=== PATIENT | female | born 1965 | race African-American/Black ===

== ENCOUNTER 2016-10-16 16:08 | Inpatient (IN) | payer MEDICAID, OTHER ==
[~2016-10-16] VITALS: Ht 175.3 cm; Wt 81.8 kg
[~2016-10-16 16:08] MED LIST: BACI500O9 TOPICAL; CYCL1TAB29 PO; GABA100C4 PO; MULT-120 PO; TRAM50TA PO; TRAZ100T4 PO
[2016-10-16 16:09] VITALS: BP 136/82; PULSE 113; RESP 20; TEMP 97.7; O2SAT 97
[2016-10-16 16:44] VITALS: BP 131/79; PULSE 109; RESP 16; O2SAT 99
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
[2016-10-16] MEDS ORDERED: AMIT50TA3 PO (16:52)
[2016-10-16 17:03] LABS: AUTOMATED NEUTROPHIL # 6.3 TH/MM3 (1.8-7.7); BASOPHIL % 0.1 % (0.0-2.0); EOSINOPHIL # 0.1 TH/MM3 (0-0.4); EOSINOPHIL % 1.2 % (0.0-4.0); HEMATOCRIT 38.3 % (35.0-46.0); HEMO FLAGS DIFF FINAL; LYMPH % 8.5 % (9.0-44.0); LYMPHOCYTE # 0.6 TH/MM3 (1.0-4.8); MEAN CELL VOLUME 80.1 FL (80.0-100.0); MEAN CORPUSCULAR HEMOGLOBIN 26.5 PG (27.0-34.0); MEAN CORPUSCULAR HGB CONC 33.1 % (32.0-36.0); MONO % 6.2 % (0.0-8.0); PLATELET COUNT 284 TH/MM3 (150-450); RED BLOOD COUNT 4.78 MIL/MM3 (4.00-5.30); WHITE BLOOD COUNT 7.5 TH/MM3 (4.0-11.0)
[2016-10-16 17:27] LABS: ALT (GPT) 32 U/L (10-53); ANION GAP 7 MEQ/L (5-15); AST (GOT) 23 U/L (15-37); BICARBONATE 26.3 MEQ/L (21.0-32.0); BLOOD UREA NITROGEN 9 MG/DL (7-18); CHLORIDE 103 MEQ/L (98-107); GLOMERULAR FILTRATION RATE 88 ML/MIN (>89); POTASSIUM 3.3 MEQ/L (3.5-5.1); SODIUM (NA) 136 MEQ/L (136-145)
[2016-10-16 17:29] LABS: ALKALINE PHOSPHATASE 66 U/L (45-117); TOTAL BILIRUBIN ADULT 0.5 MG/DL (0.2-1.0)
[2016-10-16] MEDS ORDERED: ACETAMINOPHEN 325 MG TAB PO ONE (18:00)
[2016-10-16 18:42] LABS: AMPHETAMINE, URINE NEG (NEG); BARBITURATES, URINE NEG (NEG); COCAINE, URINE NEG (NEG)
[2016-10-16 19:37] VITALS: BP 145/59; PULSE 96; RESP 18; O2SAT 95
[2016-10-17 00:58] VITALS: BP 138/56; PULSE 92; RESP 16; O2SAT 98
[2016-10-17] MEDS ORDERED: CYCLOBENZAPRINE HCL 10 MG TAB PO ONE (02:45)
[2016-10-17 07:13] VITALS: BP 133/79; PULSE 76; RESP 16; TEMP 97.8; O2SAT 99
[2016-10-17] MEDS ORDERED: LORazepam 0.5 MG TAB PO PRN (10:45)
[2016-10-17] MEDS ORDERED: LORazepam 2 MG/ML VIAL IM PRN ×2 (10:45)
[2016-10-17] MEDS: NICOTINE 21 MG/24 HR PATCH T-DERMAL SCH (10:45)
[2016-10-17] MEDS ORDERED: ALUMINUM/MAGNESIUM/SIMETH 30 ML CUP PO PRN (10:45)
[2016-10-17] MEDS ORDERED: LORazepam 1 MG TAB PO PRN (10:45)
[2016-10-17] MEDS ORDERED: MAGNESIUM HYDROXIDE SUSP 30 ML CUP PO PRN (10:45)
[2016-10-17 14:17] VITALS: BP 112/81; PULSE 88; RESP 18; TEMP 98.1; O2SAT 96
[2016-10-17] MEDS ORDERED: POTASSIUM CHLORIDE 10 MEQ CONTROLLED RELEASE TAB PO ONE (15:00)
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
[2016-10-17] MEDS ORDERED: ALBUTEROL SULFATE 90 MCG/ACT HFA 8 GM INHALER INH PRN (16:30)
[2016-10-17] MEDS: GABAPENTIN 100 MG CAP PO SCH (18:00)
[2016-10-17] MEDS: IBUPROFEN 400 MG TAB PO PRN (18:45)
[2016-10-17 20:00] VITALS: BP 120/74; PULSE 91; RESP 17; TEMP 98.3; O2SAT 99
[2016-10-17] MEDS: MENTHOL LOZENGE BUCCAL PRN (20:53)
[2016-10-17] MEDS: CYCLOBENZAPRINE HCL 10 MG TAB PO PRN (20:53)
[2016-10-17] MEDS: BENZONATATE 100 MG CAP PO PRN (22:05)
[2016-10-17] MEDS: PHENOL 1.4% SOLN 180 ML BTL MT PRN (22:05)
[2016-10-17] MEDS: ALBUTEROL SULFATE 90 MCG/ACT HFA 18 GM INHALER INH PRN (22:05)
[2016-10-17] MEDS: ACETAMINOPHEN 325 MG TAB PO PRN (22:15)
[2016-10-18 06:20] VITALS: BP 106/55; PULSE 71; RESP 18; TEMP 97.4; O2SAT 98
[2016-10-18] MEDS: BENZONATATE 100 MG CAP PO PRN ×2 (06:26→21:52)
[2016-10-18] MEDS: ALBUTEROL SULFATE 90 MCG/ACT HFA 18 GM INHALER INH PRN ×2 (06:27→21:52)
[2016-10-18] MEDS: PHENOL 1.4% SOLN 180 ML BTL MT PRN ×3 (06:27→21:52)
[2016-10-18 06:54] LABS: ANION GAP 10 MEQ/L (5-15); BLOOD UREA NITROGEN 11 MG/DL (7-18); CHLORIDE 103 MEQ/L (98-107); GLOMERULAR FILTRATION RATE 104 ML/MIN (>89); POTASSIUM 3.5 MEQ/L (3.5-5.1); SODIUM (NA) 139 MEQ/L (136-145)
[2016-10-18 06:55] LABS: HDL CHOLESTEROL 42.1 MG/DL (40.0-60.0); LDL CHOLESTEROL 52 MG/DL (0-99)
[2016-10-18] MEDS: MULTIVITAMINS/MINERALS THERAPEUTIC TAB PO SCH (09:00)
[2016-10-18] MEDS: NICOTINE 21 MG/24 HR PATCH T-DERMAL SCH (09:00)
[2016-10-18] MEDS: GABAPENTIN 100 MG CAP PO SCH ×2 (09:00→12:05)
[2016-10-18] MEDS: IBUPROFEN 400 MG TAB PO PRN (09:06)
[2016-10-18] MEDS: CYCLOBENZAPRINE HCL 10 MG TAB PO PRN (09:06)
[2016-10-18] MEDS: MENTHOL LOZENGE BUCCAL PRN ×2 (09:07→17:00)
--- NOTE | 2016-10-18 10:45 | EKG ---
Date Performed: 10/17/2016 Time Performed: 19:43:14 PTAGE: 51 years EKG: Sinus rhythm Compared to previous tracing, the patient is no longer tachycardic. NORMAL ECG PREVIOUS TRACING : 08/07/2015 00.37 DOCTOR: Jen Sheppard Interpretating Date/Time 10/18/2016 10:37:46
[2016-10-18] MEDS ORDERED: POTASSIUM CHLORIDE 20 MEQ CONTROLLED RELEASE TAB PO ONE (12:45)
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
[2016-10-18 16:15] LABS: HEMOGLOBIN A1a 1.3 %; HEMOGLOBIN A1b 0.9 %; HEMOGLOBIN Ao 85.1 %; HEMOGLOBIN F 0.9 %; HEMOGLOBIN LA1C 1.8 %; HEMOGLOBIN P3 3.7 %
--- NOTE | 2016-10-18 16:36 | HHI.PR ---
Subjective Remarks Follow-up neck pain and sore throat. Patient reports of neck pain relieved with ibuprofen. Also sore throat and cough improved. Discussed with RN Objective Vitals Vital Signs Date Time Temp Pulse Resp B/P Pulse Ox O2 Delivery O2 Flow Rate FiO2 10/18/16 06:20 97.4 71 18 106/55 98 10/17/16 20:00 98.3 91 17 120/74 99 I/O 10/17/16 10/17/16 10/17/16 10/18/16 10/18/16 10/18/16 07:00 15:00 23:00 07:00 15:00 23:00 Intake Total 360 ml 1080 ml Balance 360 ml 1080 ml Intake Oral 360 ml 1080 ml # Voids 2 2 3 Result Diagram: 10/16/16 1650 10/18/16 0606 Objective Remarks GENERAL: This is a well-nourished, well-developed patient, in no apparent distress. SKIN: No rashes, ecchymoses or lesions. Cool and dry. HEAD: Atraumatic. Normocephalic. No temporal or scalp tenderness. EYES: Pupils equal round and reactive. Extraocular motions intact. No scleral icterus. No injection or drainage. ENT: Nose without bleeding, purulent drainage or septal hematoma. Throat without erythema, tonsillar hypertrophy or exudate. Uvula midline. Airway patent. NECK: Trachea midline. No JVD or lymphadenopathy. Supple, nontender, no meningeal signs. CARDIOVASCULAR: Regular rate and rhythm without murmurs, gallops, or rubs. RESPIRATORY: Clear to auscultation. Breath sounds equal bilaterally. No wheezes , rales, or rhonchi. GASTROINTESTINAL: Abdomen soft, non-tender, nondistended. No guarding. MUSCULOSKELETAL: Extremities without clubbing, cyanosis, or edema. No joint tenderness, effusion, or edema noted. No calf tenderness. Negative Homans sign bilaterally. NEUROLOGICAL: Awake and alert. Cranial nerves II through XII intact. Motor and sensory grossly within normal limits. Five out of 5 muscle strength in all muscle groups. Normal speech. Flat affect Procedures Non- A/P Assessment and Plan This is a 51-year-old female who presented to the emergency department because of increasing depression. She attempted suicide 2 weeks ago by ingesting Flexeril and gabapentin. Patient states she developed nausea and vomited the pills. Consultation has been requested to evaluate and manage neck pain Depression. 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 Stable Continue Flexeril and Neurontin. Added Motrin after meal. Avoid narcotics Dry cough from itchy throat. Denies allergy symptoms, fever, chills and shortness of breath. Improved. Symptomatic treatment. Denilson Treviño History of asthma. Not in exacerbation. Albuterol as needed Hypokalemia. Replaced DVT prophylaxis patient ambulatory Discharge Planning Patient medically stable will sign off Rai Garrison MD Oct 18, 2016 16:36
[2016-10-18] MEDS: GABAPENTIN 300 MG CAP PO SCH (16:59)
[2016-10-18 18:04] VITALS: BP 109/63; PULSE 74; RESP 18; TEMP 98; O2SAT 99
[2016-10-18] MEDS: QUEtiapine FUMARATE 25 MG TAB PO SCH (21:52)
[2016-10-19 06:07] VITALS: BP 129/77; PULSE 69; RESP 18; TEMP 97.8; O2SAT 98
[2016-10-19 06:10] VITALS: BP 125/68; PULSE 72; RESP 18; TEMP 97.8; O2SAT 99
[2016-10-19] MEDS: GABAPENTIN 300 MG CAP PO SCH ×3 (09:45→17:07)
[2016-10-19] MEDS: MULTIVITAMINS/MINERALS THERAPEUTIC TAB PO SCH (09:45)
[2016-10-19] MEDS: NICOTINE 21 MG/24 HR PATCH T-DERMAL SCH (09:46)
--- NOTE | 2016-10-19 12:57 | HHI.PYPN ---
Subjective Remarks Patient seen in dayroom with nurse Cassandra, chart reviewed. Patient transferred today from 2700 to service. Patient stating vague noises in her head are subsiding, is also vagueness and ambiguity related to any visual manifestations. She did say she slept well for the first time in a number of days. Is compliant with her medications. For now continue treatment Review of Systems Except as stated in HPI: all other systems reviewed are Neg Objective Alert: Yes [place]: Person, Place, Date, Situation Mood: Calm, Depressed Affect: Restricted Memory Intact: Comment (fair) Hallucinations: Auditory (vague), Visual (vague) Delusions: No Delusion Type: Other (somewhat vigilant) Suicidal: Ideation (denies today) Homicidal: Ideation (denies) Insight/Judgement Poor Vitals/IOs Vital Signs Date Time Temp Pulse Resp B/P Pulse Ox O2 Delivery O2 Flow Rate FiO2 10/19/16 06:10 97.8 72 18 125/68 99 10/17/16 07:13 Room Air Intake and Output 10/18/16 10/18/16 10/19/16 08:00 16:00 00:00 Intake Total 1080 ml 510 ml Balance 1080 ml 510 ml Assessment & Plan Problem List: (1) Adjustment disorder ICD Code: F43.20 Assessment & Plan Estimated LOS: days patient continue somewhat depressed vague psychotic features. Compliant medication Justification for Cont. Inpt. At this time patient will decompensate if place to the lower level of care Discharge Planning To be determined Request HC Surrog/Guard Advoc?: No Problem Qualifiers (1) Adjustment disorder: Qualified Code: F43.20 - Adjustment disorder, unspecified type Miguel Blanchard MD Oct 19, 2016 12:57
[2016-10-19] MEDS: ALBUTEROL SULFATE 90 MCG/ACT HFA 18 GM INHALER INH PRN (17:15)
[2016-10-19 18:15] VITALS: BP 110/68; PULSE 85; RESP 18; TEMP 97.9; O2SAT 98
[2016-10-19] MEDS: QUEtiapine FUMARATE 25 MG TAB PO SCH (20:39)
[2016-10-20 06:29] VITALS: BP 96/68; PULSE 62; RESP 16; TEMP 98.4; O2SAT 99
[2016-10-20] MEDS: NICOTINE 21 MG/24 HR PATCH T-DERMAL SCH (09:00)
[2016-10-20] MEDS: CYCLOBENZAPRINE HCL 10 MG TAB PO PRN (09:07)
[2016-10-20] MEDS: MULTIVITAMINS/MINERALS THERAPEUTIC TAB PO SCH (09:07)
[2016-10-20] MEDS: GABAPENTIN 300 MG CAP PO SCH ×3 (09:07→18:00)
--- NOTE | 2016-10-20 14:13 | HHI.PYPN ---
Subjective Remarks Patient seen in day room of floor staff, chart reviewed. Patient continues somewhat depressed. Acknowledging continued auditory hallucinations but somewhat less also continued vigilance with this lady. Compliant medications. Review of Systems Except as stated in HPI: all other systems reviewed are Neg Objective Alert: Yes [place]: Person, Place, Date, Situation Mood: Calm, Depressed Affect: Restricted Memory Intact: Comment (fair) Hallucinations: Auditory (vague), Visual (vague) Delusions: No Delusion Type: Other (somewhat vigilant) Suicidal: Ideation (denies today) Homicidal: Ideation (denies) Insight/Judgement Poor Vitals/IOs Vital Signs Date Time Temp Pulse Resp B/P Pulse Ox O2 Delivery O2 Flow Rate FiO2 10/20/16 06:29 98.4 62 16 96/68 99 10/17/16 07:13 Room Air Intake and Output 10/19/16 10/19/16 10/20/16 08:00 16:00 00:00 Intake Total 240 ml Balance 240 ml Assessment & Plan Problem List: (1) Adjustment disorder ICD Code: F43.20 Assessment & Plan Estimated LOS: days patient continues depressed with a psychotic features, compliant medications Justification for Cont. Inpt. At this time patient will decompensate if placed in a lower level of care Discharge Planning To be determined Request HC Surrog/Guard Advoc?: No Problem Qualifiers (1) Adjustment disorder: Qualified Code: F43.20 - Adjustment disorder, unspecified type Miguel Blanchard MD Oct 20, 2016 14:13
[2016-10-20 19:22] VITALS: BP 115/70; PULSE 76; RESP 18; TEMP 98.6; O2SAT 95
[2016-10-20] MEDS: QUEtiapine FUMARATE 25 MG TAB PO SCH (21:09)
[2016-10-21 05:30] VITALS: BP 89/55; PULSE 61; RESP 16; TEMP 97.9; O2SAT 97
[2016-10-21] MEDS: NICOTINE 21 MG/24 HR PATCH T-DERMAL SCH (09:00)
[2016-10-21] MEDS: GABAPENTIN 300 MG CAP PO SCH ×3 (09:36→18:00)
[2016-10-21] MEDS: MULTIVITAMINS/MINERALS THERAPEUTIC TAB PO SCH (09:36)
[2016-10-21] MEDS: ACETAMINOPHEN 325 MG TAB PO PRN (09:40)
--- NOTE | 2016-10-21 13:50 | HHI.PYPN ---
Subjective Remarks Patient seen in [place] with nurse Taisha patient somewhat somatic complaining of some difficulty with her bowel movements also present and Chapstick though she has various other symptomatic options. She denies suicidality at this time states the voices are markedly decreased she said she slept well also. Patient compliant medications. For now continue treatment Review of Systems Except as stated in HPI: all other systems reviewed are Neg Objective Alert: Yes [place]: Person, Place, Date, Situation Mood: Calm, Depressed Affect: Restricted Memory Intact: Comment (fair) Hallucinations: Auditory (vague), Visual (vague) Delusions: No Delusion Type: Other (somewhat vigilant) Suicidal: Ideation (denies today) Homicidal: Ideation (denies) Insight/Judgment Poor Vitals/IOs Vital Signs Date Time Temp Pulse Resp B/P Pulse Ox O2 Delivery O2 Flow Rate FiO2 10/21/16 05:30 97.9 61 16 89/55 97 10/17/16 07:13 Room Air Assessment & Plan Problem List: (1) Adjustment disorder ICD Code: F43.20 Assessment & Plan Estimated LOS: days patient continues with auditory hallucinations, lower suicidality is resolving. Compliant medications. For now continue treatment Justification for Cont. Inpt. At this time patient will decompensate the placed in the lower level of care Discharge Planning To be determined Request HC Surrog/Guard Advoc?: No Problem Qualifiers (1) Adjustment disorder: Qualified Code: F43.20 - Adjustment disorder, unspecified type Miguel Blanchard MD Oct 21, 2016 13:50
[2016-10-21 19:00] VITALS: BP 115/69; PULSE 82; RESP 17; TEMP 97.2; O2SAT 99
[2016-10-21] MEDS: QUEtiapine FUMARATE 25 MG TAB PO SCH (21:02)
[2016-10-22 05:46] VITALS: BP 96/57; PULSE 58; RESP 18; TEMP 98.4; O2SAT 97
[2016-10-22] MEDS: NICOTINE 21 MG/24 HR PATCH T-DERMAL SCH (09:00)
[2016-10-22] MEDS: MULTIVITAMINS/MINERALS THERAPEUTIC TAB PO SCH (09:18)
[2016-10-22] MEDS: GABAPENTIN 300 MG CAP PO SCH ×3 (09:19→17:32)
--- NOTE | 2016-10-22 14:55 | HHI.PYPN ---
Subjective Remarks Patient was seen and case discussed with nursing. Patient's is endorsing homicidal ideation that began last week. She had thoughts of killing her coworkers for various slights. Says she thought of using guns but says she has no access given they're locked up by her father. When asked about homicidal ideation today she says "I think so." Does not seem to understand the consequences and meaning of her words. Objective Alert: Yes [place]: Person, Place, Date, Situation Mood: Calm Affect: Blunted Memory Intact: Comment (fair) Hallucinations: Auditory (denies) Delusions: No Delusion Type: Other (denies) Suicidal: Ideation (denies today) Homicidal: Intent (denies), Plan (to shoot coworkers), Ideation (to shoot coworkers) Insight/Judgment Poor Vitals/IOs Vital Signs Date Time Temp Pulse Resp B/P Pulse Ox O2 Delivery O2 Flow Rate FiO2 10/22/16 05:46 98.4 58 18 96/57 97 Intake and Output 10/21/16 10/21/16 10/22/16 08:00 16:00 00:00 Intake Total 360 ml 240 ml Balance 360 ml 240 ml Assessment & Plan Problem List: (1) Adjustment disorder ICD Code: F43.20 Assessment & Plan I suggest case workers and regular treating provide call on Monday to confirm access to any weapons Justification for Cont. Inpt. Patient will decompensate in a less restrictive setting Request HC Surrog/Guard Advoc?: No Problem Qualifiers (1) Adjustment disorder: Qualified Code: F43.20 - Adjustment disorder, unspecified type Noam Glass DO Oct 22, 2016 14:55
[2016-10-22 19:30] VITALS: BP 118/79; PULSE 66; RESP 18; TEMP 97.6; O2SAT 100
[2016-10-22] MEDS: QUEtiapine FUMARATE 25 MG TAB PO SCH (21:12)
[2016-10-22 22:00] VITALS: BP 102/67; PULSE 73; RESP 16; TEMP 97.4; O2SAT 98
[2016-10-23 06:12] VITALS: BP 100/55; PULSE 63; RESP 16; TEMP 97.6
[2016-10-23] MEDS: GABAPENTIN 300 MG CAP PO SCH ×3 (08:55→17:43)
[2016-10-23] MEDS: MULTIVITAMINS/MINERALS THERAPEUTIC TAB PO SCH (08:55)
[2016-10-23] MEDS: NICOTINE 21 MG/24 HR PATCH T-DERMAL SCH (09:00)
[2016-10-23] MEDS: ACETAMINOPHEN 325 MG TAB PO PRN (09:57)
[2016-10-23] MEDS: CYCLOBENZAPRINE HCL 10 MG TAB PO PRN (09:57)
--- NOTE | 2016-10-23 16:26 | HHI.PYPN ---
Subjective Remarks Patient seen and case discussed with nursing. Patient observed being social with others and playing cards. Says she is now sleeping well and feels "like me again." Says the bad thoughts are going away. As noted yesterday she was having homicidal ideation towards people at her job. No specific people named. Had a plan to use guns but says her only access to guns was her father who has his guns locked up. Denies suicidal ideation. Mood is bright and cheerful Objective Alert: Yes [place]: Person, Place, Date, Situation Mood: Calm Affect: Euthymic Memory Intact: Comment (fair) Hallucinations: Auditory (denies) Delusions: No Delusion Type: Other (denies) Suicidal: Ideation (denies today) Homicidal: Intent (getting better), Plan (to shoot coworkers), Ideation (to shoot coworkers) Insight/Judgment Fair Vitals/IOs Vital Signs Date Time Temp Pulse Resp B/P Pulse Ox O2 Delivery O2 Flow Rate FiO2 10/23/16 06:12 97.6 63 16 100/55 10/22/16 22:00 98 Assessment & Plan Problem List: (1) Adjustment disorder ICD Code: F43.20 Assessment & Plan Have caseworkers or treating provider call father to confirm guns are secure tomorrow. Justification for Cont. Inpt. Patient will decompensate in a less restrictive setting Request HC Surrog/Guard Advoc?: No Problem Qualifiers (1) Adjustment disorder: Qualified Code: F43.20 - Adjustment disorder, unspecified type Noam Glass DO Oct 23, 2016 16:26
[2016-10-23 19:49] VITALS: BP 139/93; PULSE 71; TEMP 98.6; O2SAT 100
[2016-10-23 21:00] VITALS: BP 107/71; PULSE 73; RESP 18; TEMP 98.6; O2SAT 98
[2016-10-23] MEDS: QUEtiapine FUMARATE 25 MG TAB PO SCH (21:03)
[2016-10-24 06:21] VITALS: BP 99/62; PULSE 66; RESP 18; TEMP 98.1; O2SAT 97
[2016-10-24] MEDS: NICOTINE 21 MG/24 HR PATCH T-DERMAL SCH (09:00)
[2016-10-24] MEDS: MULTIVITAMINS/MINERALS THERAPEUTIC TAB PO SCH (09:06)
[2016-10-24] MEDS: GABAPENTIN 300 MG CAP PO SCH ×3 (09:07→17:54)
[2016-10-24] MEDS: CYCLOBENZAPRINE HCL 10 MG TAB PO PRN (09:21)
--- NOTE | 2016-10-24 16:06 | HHI.PYPN ---
Subjective Remarks Patient discussed with treatment team, chart reviewed, patient seen on unit, patient continues somewhat intrusive labile grandiose and somewhat flirtatious. Should not discontinuation of the auditory hallucinations but somewhat diminished. For now continue treatment Review of Systems Except as stated in HPI: all other systems reviewed are Neg Objective Alert: Yes [place]: Person, Place, Date, Situation Mood: Calm Affect: Euthymic Memory Intact: Comment (fair) Hallucinations: Auditory (denies) Delusions: No Delusion Type: Other (denies) Suicidal: Ideation (denies today) Homicidal: Intent (getting better), Plan (to shoot coworkers), Ideation (to shoot coworkers) Insight/Judgment Poor Vitals/IOs Vital Signs Date Time Temp Pulse Resp B/P Pulse Ox O2 Delivery O2 Flow Rate FiO2 10/24/16 06:21 98.1 66 18 99/62 97 Assessment & Plan Problem List: (1) Adjustment disorder ICD Code: F43.20 Assessment & Plan Estimated LOS: days patient continues somewhat intense labile and psychotic, compliant medications, for now continue treatment Justification for Cont. Inpt. At this time patient will decompensate if placed in the lower level of care Discharge Planning To be determined Request HC Surrog/Guard Advoc?: No Problem Qualifiers (1) Adjustment disorder: Qualified Code: F43.20 - Adjustment disorder, unspecified type Miguel Blanchard MD Oct 24, 2016 16:06
[2016-10-24 18:21] VITALS: BP 106/63; PULSE 66; RESP 18; TEMP 97.6; O2SAT 97
[2016-10-24] MEDS: QUEtiapine FUMARATE 25 MG TAB PO SCH (20:02)
[2016-10-25 05:21] VITALS: BP 95/54; PULSE 64; RESP 18; TEMP 98.2; O2SAT 94
[2016-10-25] MEDS: NICOTINE 21 MG/24 HR PATCH T-DERMAL SCH (09:00)
[2016-10-25] MEDS: MULTIVITAMINS/MINERALS THERAPEUTIC TAB PO SCH (09:17)
[2016-10-25] MEDS: GABAPENTIN 300 MG CAP PO SCH ×3 (09:17→18:09)
--- NOTE | 2016-10-25 12:53 | HHI.PYPN ---
Subjective Remarks Patient seen in [place] with nurse Eden, chart reviewed, patient states she is feeling better, she denies suicidality but states the voices are persisting though decrease in frequency and intensity. For now continue treatment compliant medication Review of Systems Except as stated in HPI: all other systems reviewed are Neg Objective Alert: Yes [place]: Person, Place, Date, Situation Mood: Calm Affect: Euthymic Memory Intact: Comment (fair) Hallucinations: Auditory (denies) Delusions: No Delusion Type: Other (denies) Suicidal: Ideation (denies today) Homicidal: Intent (getting better), Plan (to shoot coworkers), Ideation (to shoot coworkers) Insight/Judgment Poor Vitals/IOs Vital Signs Date Time Temp Pulse Resp B/P Pulse Ox O2 Delivery O2 Flow Rate FiO2 10/25/16 05:21 98.2 64 18 95/54 94 Intake and Output 10/24/16 10/24/16 10/25/16 08:00 16:00 00:00 Intake Total 240 ml 360 ml Balance 240 ml 360 ml Assessment & Plan Problem List: (1) Adjustment disorder ICD Code: F43.20 Assessment & Plan Estimated LOS: days patient calmer, mood is improving, psychosis is also slowly resolving, compliant medications Justification for Cont. Inpt. At this time patient will decompensate if placed in a lower level of care Discharge Planning To be determined Request HC Surrog/Guard Advoc?: No Problem Qualifiers (1) Adjustment disorder: Qualified Code: F43.20 - Adjustment disorder, unspecified type Miguel Blanchard MD Oct 25, 2016 12:53
[2016-10-25] MEDS: QUEtiapine FUMARATE 25 MG TAB PO SCH (20:17)
[2016-10-26 05:29] VITALS: BP 99/58; PULSE 70; RESP 16; TEMP 98.2; O2SAT 98
[2016-10-26] MEDS: MULTIVITAMINS/MINERALS THERAPEUTIC TAB PO SCH (08:27)
[2016-10-26] MEDS: GABAPENTIN 300 MG CAP PO SCH ×3 (08:27→17:13)
[2016-10-26] MEDS: NICOTINE 21 MG/24 HR PATCH T-DERMAL SCH (09:00)
[2016-10-26] MEDS ORDERED: THERM PO (12:12)
[2016-10-26] MEDS ORDERED: NEUR300C PO (12:12)
[2016-10-26] MEDS ORDERED: SERO50TA PO (12:12)
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
[2016-10-26 16:00] VITALS: BP 118/72; PULSE 76; RESP 16; TEMP 97.6; O2SAT 98
== END 2016-10-26 17:50 | disposition home or self-care (01) | DRG 882 ==
LOC: NEPC 16:08 → H250 10-17 10:44 → H260 10-18 23:29
PROVIDERS: ADMIT Psychiatry & Neurology Psychiatry; ATTEND Psychiatry & Neurology Psychiatry
DX: F43.20 Adjustment disorder, unspecified (principal); R45.851 Suicidal ideations; G62.9 Polyneuropathy, unspecified; F32.9 Major depressive disorder, single episode, unspecified; F29 Unspecified psychosis not due to a substance or known physiological condition; G89.29 Other chronic pain; J45.909 Unspecified asthma, uncomplicated; M54.10 Radiculopathy, site unspecified; Z79.899 Other long term (current) drug therapy; Z91.5 Personal history of self-harm
CPT/HCPCS: 80048; 80053; 80061; 80307; 83036; 83735; 85025; 93005; 99285

== ENCOUNTER 2017-01-24 17:18 | Emergency (ER) | payer SELFPAY ==
[~2017-01-24] VITALS: Ht 175.3 cm; Wt 80.0 kg
[~2017-01-24 17:18] MED LIST changes: +AMIT50TA3 PO; -BACI500O9 TOPICAL; -MULT-120 PO; +NEUR300C PO; +SERO50TA PO; +THERM PO; -TRAM50TA PO; -TRAZ100T4 PO
[2017-01-24 17:44] VITALS: BP 128/75; PULSE 78; RESP 15; TEMP 98.4; O2SAT 98
--- NOTE | 2017-01-24 17:46 | PD ---
Physical Exam Date Seen by Provider: Jan 24, 2017 Time Seen by Provider: 17:44 Narrative 51 yo female here for evaluation of psych evaluation. History of psychiatric illness. Been hospitalized before. Not suicidal. States wants to hurt other people. No one in specific. Feels "not normal". Vitals are stable in triage. Awaiting Bed placement. [facility] Medical Record Reviewed: Yes Supervised Visit with SRINIVAS: No Dave Santiago Jan 24, 2017 17:46
--- NOTE | 2017-01-24 18:40 | PD ---
HPI Chief Complaint: Psychiatric Symptoms Time Seen by Provider: 18:33 Travel History International Travel<30 days: No Contact w/Intl Traveler<30days: No Traveled to known affect area: No History of Present Illness HPI 51-year-old female requesting psychiatric evaluation. Patient has a history of psychiatric illness. She reports she came off her medications approximately one week ago due to financial reasons. She reports she is hearing voices and states "I want to hurt people". She denies suicidal ideation. She does not report a specific plan on who or how she wants to hurt people. She denies alcohol or illicit drug use today. PFSH Past Medical History Arthritis: No Asthma: Yes Autoimmune Disease: No Anxiety: No Depression: Yes Heart Rhythm Problems: No Cancer: No Cardiovascular Problems: No High Cholesterol: No Chemotherapy: No Chest Pain: No Congestive Heart Failure: No COPD: No Cerebrovascular Accident: No Diabetes: No Diminished Hearing: No Endocrine: No GERD: No Genitourinary: No Headaches: Yes Hiatal Hernia: No Immune Disorder: No Kidney Stones: No Musculoskeletal: No Neurologic: No Psychiatric: Yes (depression) Reproductive: No Respiratory: Yes Migraines: No Pancreatitis: Yes (1996) Radiation Therapy: No Seizures: No Sickle Cell Disease: No Sleep Apnea: No Thyroid Disease: No Ulcer: No Tetanus Vaccination: < 5 Years ?: Not Menopausal: Yes : 4 Para: 2 : 2 Past Surgical History Abdominal Surgery: No AICD: No Arteriovenous Shunt: No Cardiac Surgery: No Ear Surgery: No Endocrine Surgery: No Eye Surgery: No Genitourinary Surgery: No Gynecologic Surgery: No Insulin Pump: No Joint Replacement: No Oral Surgery: No Pacemaker: No Thoracic Surgery: No Social History Alcohol Use: No Tobacco Use: No Substance Use: Yes Allergies-Medications (Allergen,Severity, Reaction): Coded Allergies: No Known Allergies (Verified , 01/24/17) Reported Meds & Prescriptions Reported Meds & Active Scripts Active Seroquel (Quetiapine Fumarate) 50 Mg Tab 50 Mg PO HS Thera M Plus (Multivitamins/Minerals Therapeutic) 1 Tab 1 Tab PO DAILY Neurontin (Gabapentin) 300 Mg Cap 300 Mg PO TID Flexeril (Cyclobenzaprine HCl) 10 Mg Tab 10 Mg PO TID PRN Gabapentin 100 Mg Cap 200 Mg PO TID Reported Amitriptyline (Amitriptyline HCl) 50 Mg Tab 50 Mg PO HS Review of Systems Except as stated in HPI: all other systems reviewed are Neg General / Constitutional: No: Fever Eyes: No: Visual changes HENT: No: Headaches Cardiovascular: No: Chest Pain or Discomfort Respiratory: No: Shortness of Breath Gastrointestinal: No: Abdominal Pain Genitourinary: No: Dysuria Musculoskeletal: No: Pain Skin: No Rash Psychiatric: Positive: Homicidal Ideation Physical Exam Narrative GENERAL: Alert, well-appearing female. SKIN: Focused skin assessment warm/dry. HEAD: Atraumatic. Normocephalic. EYES: Pupils equal and round. No scleral icterus. No injection or drainage. ENT: No nasal bleeding or discharge. Mucous membranes pink and moist. NECK: Trachea midline. No JVD. CARDIOVASCULAR: Regular rate and rhythm. No murmur appreciated. RESPIRATORY: No accessory muscle use. Clear to auscultation. Breath sounds equal bilaterally. GASTROINTESTINAL: Abdomen soft, non-tender, nondistended. Hepatic and splenic margins not palpable. MUSCULOSKELETAL: No obvious deformities. No clubbing. No cyanosis. No edema. NEUROLOGICAL: Awake and alert. No obvious cranial nerve deficits. Motor grossly within normal limits. Normal speech. PSYCHIATRIC: Flat affect, avoids eye contact, pressured speech; insight and judgment normal. Data Data Last Documented VS Vital Signs Date Time Temp Pulse Resp B/P Pulse Ox O2 Delivery O2 Flow Rate FiO2 01/24/17 17:44 98.4 78 15 128/75 98 Orders Complete Blood Count With Diff (01/24/17 18:31) Comprehensive Metabolic Panel (01/24/17 18:31) Psych Screen (01/24/17 18:31) Drug Screen, Random Urine (01/24/17 18:31) Alcohol (Ethanol) (01/24/17 18:31) Salicylates (Aspirin) (01/24/17 18:31) Tylenol (Acetaminophen) (01/24/17 18:31) Labs Laboratory Tests Test 01/24/17 18:40 White Blood Count 7.4 TH/MM3 Red Blood Count 4.76 MIL/MM3 Hemoglobin 12.2 GM/DL Hematocrit 39.1 % Mean Corpuscular Volume 82.1 FL Mean Corpuscular Hemoglobin 25.7 PG Mean Corpuscular Hemoglobin 31.3 % Concent Red Cell Distribution Width 14.8 % Platelet Count 301 TH/MM3 Mean Platelet Volume 8.1 FL Neutrophils (%) (Auto) 36.4 % Lymphocytes (%) (Auto) 53.2 % Monocytes (%) (Auto) 5.3 % Eosinophils (%) (Auto) 4.4 % Basophils (%) (Auto) 0.7 % Neutrophils # (Auto) 2.7 TH/MM3 Lymphocytes # (Auto) 4.0 TH/MM3 Monocytes # (Auto) 0.4 TH/MM3 Eosinophils # (Auto) 0.3 TH/MM3 Basophils # (Auto) 0.0 TH/MM3 CBC Comment DIFF FINAL Differential Comment Sodium Level 140 MEQ/L Potassium Level 3.8 MEQ/L Chloride Level 108 MEQ/L Carbon Dioxide Level 24.6 MEQ/L Anion Gap 7 MEQ/L Blood Urea Nitrogen 18 MG/DL Creatinine 0.78 MG/DL Estimat Glomerular Filtration 93 ML/MIN Rate Random Glucose 78 MG/DL Calcium Level 9.1 MG/DL Total Bilirubin 0.2 MG/DL Aspartate Amino Transf 20 U/L (AST/SGOT) Alanine Aminotransferase 27 U/L (ALT/SGPT) Alkaline Phosphatase 93 U/L Total Protein 7.6 GM/DL Albumin 3.8 GM/DL Salicylates Level 3.8 MG/DL Urine Opiates Screen NEG Acetaminophen Level LESS THAN 2.0 MCG/ML Urine Barbiturates Screen NEG Urine Amphetamines Screen NEG Urine Benzodiazepines Screen NEG Urine Cocaine Screen NEG Urine Cannabinoids Screen POS Ethyl Alcohol Level LESS THAN 3 MG/DL MDM Medical Decision Making Medical Screen Exam Complete: Yes Emergency Medical Condition: Yes Differential Diagnosis Homicidal ideation, medication noncompliance, mood disorder, bipolar disorder, electrolyte abnormality Narrative Course 51-year-old female presents emergency department requesting psychiatric evaluation. Patient reports she recently stopped taking her Seroquel and other medications due to financial reasons. Shortly after she reports she started hearing voices and feeling "rage". She denies suicidal ideation. She states she wants to "harm people". She has no specific plan. Patient was placed under Maharaj act. Labs and tox screen ordered and pending. Once patient is medically cleared she will have psychiatric evaluation. Mental health screening discussed with the patient. Psychiatric screen ordered. CBC unremarkable BMP unremarkable Tox screen positive for cannabis Patient is medically cleared for psychiatric screening Diagnosis Primary Impression: Homicidal ideation Cierra Denton Jan 24, 2017 18:40
[2017-01-24 19:22] LABS: AUTOMATED NEUTROPHIL # 2.7 TH/MM3 (1.8-7.7); BASOPHIL % 0.7 % (0.0-2.0); EOSINOPHIL # 0.3 TH/MM3 (0-0.4); EOSINOPHIL % 4.4 % (0.0-4.0); HEMATOCRIT 39.1 % (35.0-46.0); HEMO FLAGS DIFF FINAL; LYMPH % 53.2 % (9.0-44.0); MEAN CELL VOLUME 82.1 FL (80.0-100.0); MEAN CORPUSCULAR HEMOGLOBIN 25.7 PG (27.0-34.0); MEAN CORPUSCULAR HGB CONC 31.3 % (32.0-36.0); MONO % 5.3 % (0.0-8.0); NEUT % 36.4 % (16.0-70.0); PLATELET COUNT 301 TH/MM3 (150-450); RED BLOOD COUNT 4.76 MIL/MM3 (4.00-5.30); RED CELL DISTRIBUTION WIDTH 14.8 % (11.6-17.2); WHITE BLOOD COUNT 7.4 TH/MM3 (4.0-11.0)
[2017-01-24 19:28] LABS: AMPHETAMINE, URINE NEG (NEG); BARBITURATES, URINE NEG (NEG); COCAINE, URINE NEG (NEG)
[2017-01-24 19:33] LABS: ANION GAP 7 MEQ/L (5-15); AST (GOT) 20 U/L (15-37); BICARBONATE 24.6 MEQ/L (21.0-32.0); BLOOD UREA NITROGEN 18 MG/DL (7-18); CHLORIDE 108 MEQ/L (98-107); GLOMERULAR FILTRATION RATE 93 ML/MIN (>89); POTASSIUM 3.8 MEQ/L (3.5-5.1); SODIUM (NA) 140 MEQ/L (136-145)
[2017-01-24 19:35] LABS: ALT (GPT) 27 U/L (10-53)
[2017-01-24 19:37] LABS: ALKALINE PHOSPHATASE 93 U/L (45-117); TOTAL BILIRUBIN ADULT 0.2 MG/DL (0.2-1.0)
[2017-01-24 19:44] LABS: ACETAMINOPHEN LESS THAN 2.0 MCG/ML (10.0-30.0)
[2017-01-24 21:09] VITALS: BP 141/81; PULSE 60; RESP 20; TEMP 98.1; O2SAT 98
[2017-01-24 23:24] VITALS: PULSE 102
[2017-01-25 02:13] VITALS: BP 106/56; PULSE 53; RESP 19; O2SAT 99
[2017-01-25 06:10] VITALS: BP 112/61; PULSE 58; RESP 17; O2SAT 99
[2017-01-25 11:44] VITALS: BP 112/61; PULSE 58; RESP 17; O2SAT 99
[2017-01-25] MEDS ORDERED: NEUR300C PO (11:52)
[2017-01-25] MEDS ORDERED: AMIT50TA3 PO (11:56)
[2017-01-25] MEDS ORDERED: CYMB60CA PO (11:57)
--- NOTE | 2017-01-25 12:18 | PD ---
History of Present Illness Chief Complaint: Psychiatric Symptoms Time Seen by Provider: 10:40 Travel History International Travel<30 Days: No Contact w/Intl Traveler<30days: No Known affected area: No Legal Status Legal Status: Maharaj Act Maharaj Act Signed By: DR. PEREIRA IN [facility] History of Present Illness: History of Present Illness HPI 51-year-old female with history of adjustment disorder who presents to ED under a voluntary basis requesting psychiatric evaluation. Patient was placed under a BA after evaluated by ED physician and due to her reports of hearing voices telling her to hurt other people. Patient stopped her psychiatric medications approximately 2 weeks ago due to financial reasons. Patient was monitored in [facility] and presented no behavioral concerns and no suicidality. EMR reviewed. One previous admit to [facility] in October 2016. Patient is seen. She is alert and calm. speech is clear and logical. States " I feel better and in more control now". 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 She denies any hallucinations . No delusions and no paranoia. No suicidal or homicidal ideation. She wants to be able to start her medication again and her daughters will help her financially to do so. PFSH Past Medical History Arthritis: No Asthma: Yes Autoimmune Disease: No Anxiety: No Depression: Yes Heart Rhythm Problems: No Cancer: No Cardiovascular Problems: No High Cholesterol: No Chemotherapy: No Chest Pain: No Congestive Heart Failure: No COPD: No Cerebrovascular Accident: No Diabetes: No Diminished Hearing: No Endocrine: No GERD: No Genitourinary: No Headaches: Yes Hiatal Hernia: No Immune Disorder: No Kidney Stones: No Musculoskeletal: No Neurologic: No Psychiatric: Yes (depression) Reproductive: No Respiratory: Yes Migraines: No Pancreatitis: Yes (1996) Radiation Therapy: No Seizures: No Sickle Cell Disease: No Sleep Apnea: No Thyroid Disease: No Ulcer: No Tetanus Vaccination: < 5 Years ?: Not Menopausal: Yes : 4 Para: 2 : 2 Past Surgical History Abdominal Surgery: No AICD: No Arteriovenous Shunt: No Cardiac Surgery: No Ear Surgery: No Endocrine Surgery: No Eye Surgery: No Genitourinary Surgery: No Gynecologic Surgery: No Insulin Pump: No Joint Replacement: No Oral Surgery: No Pacemaker: No Thoracic Surgery: No Psychiatric History Psychiatric History Hx Psychiatric Treatment: PATIENT WAS LAST ADMITTED TO [facility] FROM 10/17/16 TO 10/26/16 FOR ADJUSTMENT DISORDER. History of Inpatient Treatment: Yes Guns or firearms in home: No Social History Single female. Unemployed . lives by herself with her dog. Hx Alcohol Use: No Hx Tobacco Use: No Hx Substance Use: No Substance Use Type: Marijuana Hx of Substance Use Treatment: No Family Psychiatric History negative Allergies-Medications (Allergen,Severity, Reaction): Coded Allergies: No Known Allergies (Verified , 01/24/17) Reported Meds & Prescriptions Reported Meds & Active Scripts Active Cymbalta DR (Duloxetine HCl) 60 Mg Capdr 60 Mg PO DAILY Amitriptyline (Amitriptyline HCl) 50 Mg Tab 50 Mg PO HS Neurontin (Gabapentin) 300 Mg Cap 300 Mg PO TID Seroquel (Quetiapine Fumarate) 50 Mg Tab 50 Mg PO HS Thera M Plus (Multivitamins/Minerals Therapeutic) 1 Tab 1 Tab PO DAILY Neurontin (Gabapentin) 300 Mg Cap 300 Mg PO TID Flexeril (Cyclobenzaprine HCl) 10 Mg Tab 10 Mg PO TID PRN Reported Amitriptyline (Amitriptyline HCl) 50 Mg Tab 50 Mg PO HS Review of Systems Except as stated in HPI: all other systems reviewed are Neg Musculoskeletal: COMPLAINS OF: Back pain, Neck pain Exam Alert: Yes [place]: Person (ox4) Mood: Anxious Affect: Appropriate Speech: Clear, Logical Eye Contact: Normal Memory Intact: Comment (no impairmetn) Delusions: No Suicidal: Ideation (negative) Homicidal: Ideation (neagtive) Insight/Judgement Fair. not impaired. 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 She also reports she has stopped her medications due to financial reasons. She was placed under a BA by ED as s she reported hallucinations telling her to harm people. The patient was monitored and did not present any hallucinations , no agitation and no other acute psychiatric symptomatology. At this time this patient does not present any criteria to remain under a BA.She will be provided a script for her psychiatric medications until she can be seen at [facility] alok resendiz. Orders Complete Blood Count With Diff (01/24/17 18:31) Comprehensive Metabolic Panel (01/24/17 18:31) Psych Screen (01/24/17 18:31) Drug Screen, Random Urine (01/24/17 18:31) Alcohol (Ethanol) (01/24/17 18:31) Salicylates (Aspirin) (01/24/17 18:31) Tylenol (Acetaminophen) (01/24/17 18:31) Diet Regular Basic (01/25/17 Breakfast) Diet Regular Basic (01/25/17 Lunch) Results Vital Signs Date Time Temp Pulse Resp B/P Pulse Ox O2 Delivery O2 Flow Rate FiO2 01/25/17 11:44 58 17 112/61 99 Room Air 01/25/17 06:10 58 17 112/61 99 Room Air 01/25/17 02:13 53 19 106/56 99 Room Air 01/24/17 21:09 98.1 60 20 141/81 98 Room Air 01/24/17 17:44 98.4 78 15 128/75 98 Laboratory Tests Test 01/24/17 18:40 White Blood Count 7.4 Red Blood Count 4.76 Hemoglobin 12.2 Hematocrit 39.1 Mean Corpuscular Volume 82.1 Mean Corpuscular Hemoglobin 25.7 Mean Corpuscular Hemoglobin 31.3 Concent Red Cell Distribution Width 14.8 Platelet Count 301 Mean Platelet Volume 8.1 Neutrophils (%) (Auto) 36.4 Lymphocytes (%) (Auto) 53.2 Monocytes (%) (Auto) 5.3 Eosinophils (%) (Auto) 4.4 Basophils (%) (Auto) 0.7 Neutrophils # (Auto) 2.7 Lymphocytes # (Auto) 4.0 Monocytes # (Auto) 0.4 Eosinophils # (Auto) 0.3 Basophils # (Auto) 0.0 CBC Comment DIFF FINAL Differential Comment Sodium Level 140 Potassium Level 3.8 Chloride Level 108 Carbon Dioxide Level 24.6 Anion Gap 7 Blood Urea Nitrogen 18 Creatinine 0.78 Estimat Glomerular Filtration 93 Rate Random Glucose 78 Calcium Level 9.1 Total Bilirubin 0.2 Aspartate Amino Transf 20 (AST/SGOT) Alanine Aminotransferase 27 (ALT/SGPT) Alkaline Phosphatase 93 Total Protein 7.6 Albumin 3.8 Salicylates Level 3.8 Urine Opiates Screen NEG Acetaminophen Level LESS THAN 2.0 Urine Barbiturates Screen NEG Urine Amphetamines Screen NEG Urine Benzodiazepines Screen NEG Urine Cocaine Screen NEG Urine Cannabinoids Screen POS Ethyl Alcohol Level LESS THAN 3 Diagnosis Primary Impression: Adjustment disorder with mixed anxiety and depressed mood Ruled Out: Homicidal ideation Psychiatrically Cleared: Yes Departure Forms: Tests/Procedures Patient Instructions: General Instructions Med/ Other Pt Specific Info: Prescription(s) given Prescriptions Duloxetine DR (Cymbalta DR)60 Mg Capdr60 Mg PO DAILY #30 CAP Ref 0 Prov:Heydi Sheppard 01/25/17 Amitriptyline 50 Mg Tab50 Mg PO HS #30 TAB Prov:Heydi Sheppard 01/25/17 Gabapentin (Neurontin)300 Mg [id number] Mg PO TID #90 CAP Ref 0 Prov:Heydi Sheppard 01/25/17 Disposition: 01 DISCHARGE HOME Condition: Stable Heydi Sheppard Jan 25, 2017 12:18
== END 2017-01-25 12:49 | disposition home or self-care (01) ==
LOC: NEPD 17:18 → NEPJ 01-25 12:49
DX: F43.23 Adjustment disorder with mixed anxiety and depressed mood (principal); Z79.899 Other long term (current) drug therapy
CPT/HCPCS: 80053; 80307; 85025; 99284

== ENCOUNTER 2017-07-06 06:47 | Emergency (ER) | payer SELFPAY ==
[2017-07-06] VITALS (8 sets, daily range): BP systolic 103–152; BP diastolic 57–79; PULSE 68–80; RESP 18–27; TEMP 98.2; O2SAT 94–100
[~2017-07-06 06:47] MED LIST changes: -CYCL1TAB29 PO; +CYMB60CA PO; -GABA100C4 PO; -NEUR300C PO; -SERO50TA PO; -THERM PO
[2017-07-06] MEDS ORDERED: IOHEXOL 350 MG/ML 10 ML VIAL (for RAD DIAG) IVCONTRAST ONE (06:48)
[2017-07-06] MEDS ORDERED: SODIUM CHLOR 0.9% 1000 ML INJ 1,000 ML IV SCH (07:22)
[2017-07-06] MEDS ORDERED: diphenhydrAMINE HCL 50 MG/ML VIAL IV PUSH ONE ×2 (07:30→12:00)
[2017-07-06] MEDS ORDERED: DICYCLOMINE HCL 20 MG/2 ML VIAL IM ONE (07:30)
[2017-07-06] MEDS ORDERED: SODIUM CHLORIDE 0.9% FLUSH 10 ML FLUSH IV FLUSH PRN (07:30)
[2017-07-06] MEDS ORDERED: PROCHLORPERAZINE INJ 10 MG/2 ML VIAL IV PUSH ONE ×2 (07:30→12:00)
[2017-07-06] MEDS ORDERED: FAMOTIDINE 20 MG/2 ML VIAL IV PUSH ONE (07:30)
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
[2017-07-06] MEDS ORDERED: KETAMINE HCL 500 MG/5 ML VIAL IM ONE (08:00)
[2017-07-06 08:13] LABS: ALBUMIN 4.3 GM/DL (3.4-5.0); ALKALINE PHOSPHATASE 88 U/L (45-117); ALT (GPT) 30 U/L (10-53); AST (GOT) 29 U/L (15-37); BICARBONATE 25.8 MEQ/L (21.0-32.0); BLOOD UREA NITROGEN 13 MG/DL (7-18); CALCIUM 9.3 MG/DL (8.5-10.1); CHLORIDE 104 MEQ/L (98-107); CREATININE 0.83 MG/DL (0.50-1.00); GLOMERULAR FILTRATION RATE 87 ML/MIN (>89); GLUCOSE,RANDOM 109 MG/DL (74-106); LIPASE 89 U/L (73-393); SODIUM (NA) 138 MEQ/L (136-145); TOTAL BILIRUBIN ADULT 0.6 MG/DL (0.2-1.0); TOTAL PROTEIN 9.2 GM/DL (6.4-8.2)
--- NOTE | 2017-07-06 09:10 | RADRPT ---
EXAM DATE/TIME: 07/06/2017 08:30 [facility] COMPARISON: CHEST SINGLE AP, August 06, 2015, 22:54. INDICATIONS : Central line placement. MEDICAL HISTORY : Traumatic brain injury. Asthma. Smoker. SURGICAL HISTORY : None. ENCOUNTER: Initial ACUITY: 1 day PAIN SCORE: Non-responsive. LOCATION: Bilateral chest FINDINGS: A single view of the chest demonstrates the lungs to be symmetrically aerated without evidence of mas s, infiltrate or effusion. The cardiomediastinal contours are unremarkable. Osseous structures are intact. There has been interval placement of a right subclavian central venous catheter with its tip overlyin g the SVC. There is no pneumothorax evident. The NG tube is coiled within the stomach. The NG tube ac tually may extend back up into the distal esophagus. CONCLUSION: Right subclavian central line in excellent position. Nasogastric tube is in the stomach. Fransico Pena MD on July 06, 2017 at 9:07 Board Certified Radiologist. This report was verified electronically.
--- NOTE | 2017-07-06 09:11 | RADRPT ---
EXAM DATE/TIME: 07/06/2017 08:41 [facility] COMPARISON: No previous studies available for comparison. INDICATIONS : NG tube placement. MEDICAL HISTORY : Traumatic brain injury. Asthma. Smoker. SURGICAL HISTORY : None. ENCOUNTER: Initial ACUITY: 1 day PAIN SCORE: Non-responsive. LOCATION: Abdomen. FINDINGS: Examination of the abdomen demonstrates a normal bowel gas pattern. No free air is identified. No o rganomegaly is evident. Osseous structures are intact. CONCLUSION: Normal examination. The nasogastric extends into the stomach and coiled back possibly into the dista l esophagus. Fransico Pena MD on July 06, 2017 at 9:08 Board Certified Radiologist. This report was verified electronically.
[2017-07-06 09:33] LABS: AUTOMATED NEUTROPHIL # 9.2 TH/MM3 (1.8-7.7); BASOPHIL % 0.2 % (0.0-2.0); HEMATOCRIT 36.6 % (35.0-46.0); LYMPH % 8.3 % (9.0-44.0); LYMPHOCYTE # 0.9 TH/MM3 (1.0-4.8); MEAN CELL VOLUME 82.5 FL (80.0-100.0); MEAN CORPUSCULAR HEMOGLOBIN 26.9 PG (27.0-34.0); MEAN CORPUSCULAR HGB CONC 32.7 % (32.0-36.0); MEAN PLATELET VOLUME 7.5 FL (7.0-11.0); MONO % 1.9 % (0.0-8.0); MONOCYTE # 0.2 TH/MM3 (0-0.9); NEUT % 89.6 % (16.0-70.0); PLATELET COUNT 329 TH/MM3 (150-450); RED BLOOD COUNT 4.44 MIL/MM3 (4.00-5.30); RED CELL DISTRIBUTION WIDTH 14.1 % (11.6-17.2); WHITE BLOOD COUNT 10.3 TH/MM3 (4.0-11.0)
[2017-07-06 09:55] LABS: BACTERIA, URINE RARE /hpf; BILIRUBIN, URINE NEG (NEG); BLOOD, URINE TRACE (NEG); GLUCOSE,URINE TRACE mg/dL (NEG); HYALINE CAST, URINE 1 /lpf (RARE); KETONE, URINE 10 mg/dL (NEG); MUCUS URINE MANY /lpf (OCC); NITRITE,URINE NEG (NEG); PH, URINE 7.5 (5.0-8.5); URINE COLOR YELLOW (YELLW/STRAW); URINE LEUKOCYTE ESTERASE NEG (NEG)
--- NOTE | 2017-07-06 12:36 | RADRPT ---
EXAM DATE/TIME: 07/06/2017 12:06 [facility] COMPARISON: No previous studies available for comparison. INDICATIONS : Epigastric pain vomiting IV CONTRAST: 71 cc Omnipaque 350 (iohexol) IV ORAL CONTRAST: No oral contrast ingested. RADIATION DOSE: 7.31 CTDIvol (mGy) MEDICAL HISTORY : Pancreatitis. SURGICAL HISTORY : Neck surgery ENCOUNTER: Initial ACUITY: 1 day PAIN SCALE: 10/10 LOCATION: Abdomen TECHNIQUE: Volumetric scanning of the abdomen and pelvis was performed. Using automated exposure control and ad justment of the mA and/or kV according to patient size, radiation dose was kept as low as reasonably achievable to obtain optimal diagnostic quality images. DICOM format image data is available electro nically for review and comparison. FINDINGS: Lung bases are clear. No acute findings in the liver, spleen, adrenals, kidneys or pancreas. There is no mural thickening of the right colon especially near the hepatic flexure which may indicate mild c olitis. No calcified gallstones. No biliary ductal dilatation. No acute bony abnormality. CONCLUSION: 1. Possible mild mural thickening of the right colon near the hepatic flexure is characteristic of a mild colitis. Remainder of exam unremarkable. Josh Hodges MD on July 06, 2017 at 12:31 Board Certified Radiologist. This report was verified electronically.
[2017-07-06] MEDS ORDERED: PROM1SUP7 RECTAL (14:45)
== END 2017-07-06 15:37 | disposition home or self-care (01) ==
LOC: NEPE 06:47
DX: R10.13 Epigastric pain (principal); R11.14 Bilious vomiting; K85.90 Acute pancreatitis without necrosis or infection, unspecified; J45.909 Unspecified asthma, uncomplicated
CPT/HCPCS: 36556; 71010; 74000; 74177; 80053; 81001; 83690; 84703; 85025; 87086; 96361; 96372; 96374; 96375; 99152; 99285; J0500; J0780; J1200; J3010; J7030; Q9967

== ENCOUNTER 2017-12-16 08:31 | Observation (INO) | payer SELFPAY ==
[~2017-12-16] VITALS: Ht 162.6 cm; Wt 80.0 kg
[~2017-12-16 08:31] MED LIST changes: +PROM1SUP7 RECTAL
[2017-12-16 08:35] VITALS: BP 169/84; PULSE 98; RESP 16; TEMP 97.6
--- NOTE | 2017-12-16 09:14 | PD ---
HPI Chief Complaint: Injury Time Seen by Provider: 09:05 Travel History International Travel<30 days: No Contact w/Intl Traveler<30days: No Traveled to known affect area: No History of Present Illness HPI 52yo F with schizophrenia on trazadone presents to the ED with c/o right third digit distal amputation after accidentally cutting her finger in medical office specialist. Pt was cutting grass at 8:30am and thought she shut the machine off but did not. Denies any other injuries. Not up to date on tetanus. Denies any suicidal or homicidal ideations. This was an accident. PFSH Past Medical History Arthritis: No Asthma: Yes Autoimmune Disease: No Bipolar Disorder: Yes Anxiety: No Depression: Yes Heart Rhythm Problems: No Cancer: No Cardiovascular Problems: No High Cholesterol: No Chemotherapy: No Chest Pain: No Congestive Heart Failure: No COPD: No Cerebrovascular Accident: No Diabetes: No Diminished Hearing: No Endocrine: No GERD: No Genitourinary: No Headaches: Yes Hiatal Hernia: No Immune Disorder: No Kidney Stones: No Musculoskeletal: No Neurologic: Yes (TBI) Psychiatric: Yes (depression) Reproductive: No Respiratory: Yes Migraines: No Pancreatitis: Yes (1996) Radiation Therapy: No Schizophrenia: Yes Seizures: No Sickle Cell Disease: No Sleep Apnea: No Thyroid Disease: No Ulcer: No ?: Not Menopausal: Yes : 4 Para: 2 : 2 Past Surgical History Abdominal Surgery: No AICD: No Arteriovenous Shunt: No Cardiac Surgery: No Ear Surgery: No Endocrine Surgery: No Eye Surgery: No Genitourinary Surgery: No Gynecologic Surgery: No Insulin Pump: No Joint Replacement: No Oral Surgery: No Pacemaker: No Thoracic Surgery: No Social History Alcohol Use: No Tobacco Use: No Substance Use: Yes (marijuana) Allergies-Medications (Allergen,Severity, Reaction): Coded Allergies: No Known Allergies (Verified Adverse Reaction, Unknown, 12/16/17) Reported Meds & Prescriptions Reported Meds & Active Scripts Active Phenergan Supp (Promethazine HCl) 25 Mg Supp 25 Mg RECTAL Q6H PRN Reported Risperidone 2 Mg Tab 2 Mg PO HS Risperidone 1 Mg Tab 1 Mg PO DAILY Divalproex DR (Divalproex Sodium) 250 Mg Tabdr 250 Mg PO BID Latuda (Lurasidone) 60 Mg Tab 60 Mg PO DAILY Amitriptyline (Amitriptyline HCl) 100 Mg Tab 100 Mg PO HS Review of Systems Except as stated in HPI: all other systems reviewed are Neg Physical Exam Narrative GENERAL: 52yo F in moderate distress. SKIN: Focused skin assessment warm/dry. HEAD: Atraumatic. Normocephalic. EYES: Pupils equal and round. No scleral icterus. No injection or drainage. ENT: No nasal bleeding or discharge. Mucous membranes pink and moist. NECK: Trachea midline. No JVD. CARDIOVASCULAR: Regular rate and rhythm. No murmur appreciated. RESPIRATORY: No accessory muscle use. Clear to auscultation. Breath sounds equal bilaterally. GASTROINTESTINAL: Abdomen soft, non-tender, nondistended. MUSCULOSKELETAL: Right hand: +Distal 3rd digit amputation. +Bone exposure. Small arterial bleed that is controlled. Able to flex and extend DIP, IP, PIP. Radial pulse 2+. Sensation intact. NEUROLOGICAL: Awake and alert. No obvious cranial nerve deficits. Motor grossly within normal limits. Normal speech. PSYCHIATRIC: Appropriate mood and affect; insight and judgment normal. Data Data Last Documented VS Vital Signs Date Time Temp Pulse Resp B/P (MAP) Pulse Ox O2 Delivery O2 Flow Rate FiO2 12/16/17 08:35 97.6 98 16 169/84 (112) Orders Orders Tetanus/Diphtheria Tox Adult (Tetanus/Di (12/16/17 09:15) Morphine Inj (Morphine Inj) (12/16/17 09:15) Hand, Limited (2vws) (12/16/17 ) Lidocaine Pf 1% Inj (Xylocaine-Mpf 1% In (12/16/17 09:30) NPO (12/16/17 10:43) Cefazolin 2 Gm Premix (Ancef 2 Gm Premix (12/16/17 11:00) Complete Blood Count With Diff (12/16/17 10:48) Basic Metabolic Panel (Bmp) (12/16/17 10:48) Prothrombin Time / Inr (Pt) (12/16/17 10:48) Act Partial Throm Time (Ptt) (12/16/17 10:48) Type And Screen (12/16/17 10:48) Admit Order (Ed Use Only) (12/16/17 11:05) Labs Laboratory Tests Test 12/16/17 11:04 White Blood Count 6.3 TH/MM3 Red Blood Count 4.96 MIL/MM3 Hemoglobin 13.1 GM/DL Hematocrit 40.8 % Mean Corpuscular Volume 82.3 FL Mean Corpuscular Hemoglobin 26.5 PG Mean Corpuscular Hemoglobin Concent 32.2 % Red Cell Distribution Width 14.4 % Platelet Count 387 TH/MM3 Mean Platelet Volume 7.1 FL Neutrophils (%) (Auto) 60.5 % Lymphocytes (%) (Auto) 32.8 % Monocytes (%) (Auto) 3.5 % Eosinophils (%) (Auto) 2.1 % Basophils (%) (Auto) 1.1 % Neutrophils # (Auto) 3.8 TH/MM3 Lymphocytes # (Auto) 2.1 TH/MM3 Monocytes # (Auto) 0.2 TH/MM3 Eosinophils # (Auto) 0.1 TH/MM3 Basophils # (Auto) 0.1 TH/MM3 CBC Comment DIFF FINAL Differential Comment Prothrombin Time 10.0 SEC Prothromb Time International Ratio 1.0 RATIO Activated Partial Thromboplast Time 25.7 SEC Blood Urea Nitrogen 16 MG/DL Creatinine 1.07 MG/DL Random Glucose 101 MG/DL Calcium Level 8.8 MG/DL Sodium Level 140 MEQ/L Potassium Level 4.1 MEQ/L Chloride Level 107 MEQ/L Carbon Dioxide Level 25.0 MEQ/L Anion Gap 8 MEQ/L Estimat Glomerular Filtration Rate 65 ML/MIN [facility] Medical Decision Making Medical Screen Exam Complete: Yes Emergency Medical Condition: Yes Differential Diagnosis Distal phalanx amputation vs. fracture Narrative Course 52yo F with right third digit distal phalanx amputation s/p cutting it with medical office specialist this morning. Denies any injury. Unknown tetanus so tetanus was updated. Pt is left handed. Right third digit anesthesized with 1% lidocaine by digital block and irrigated thoroughly with irrimax. There is a small arterial bleed but stopped after pressure applied. +Bone exposed. Xray right hand showed amputation of the distal tuft of the third digit as well as fracture through the base of the distal phalanx. The does not appear to extend to the DIP joint. Discussed with hand surgeon Dr. Allen and she recommended admission to medicine, basic labs and she will take pt to the OR at 12pm today to repair it. Pt ate a banana at 6am and has been NPO. Pt given ancef as well and morphine, pain is controlled. Right third digit covered with xeroform and gauze. Labs reviewed, no leukocytosis. H/H normal. BMP unremarkable. Discussed with resident physicians and accepted to Dr. Ward's service. Diagnosis Primary Impression: Open fracture of distal phalangeal tuft Admitting Information Admitting Physician Requests: Observation Bianca Carreno DO Dec 16, 2017 09:14
[2017-12-16] MEDS ORDERED: MORPHINE SULFATE 4 MG/ML INJ IM ONE (09:15)
[2017-12-16] MEDS ORDERED: LIDOCAINE HCL 1% 50 ML VIAL INFIL ONE (09:15)
[2017-12-16] MEDS ORDERED: TETANUS/DIPHTHERIA TOXOID ADULT 0.5 ML VIAL IM ONE (09:15)
[2017-12-16] MEDS ORDERED: LIDOCAINE HCL 1% PF 30 ML VIAL INFIL ONE (09:30)
--- NOTE | 2017-12-16 09:53 | RADRPT ---
EXAM DATE: 12/16/2017 9:38 AM EDT AGE/SEX: 52 years / Female INDICATIONS: Patient reached under tomato paste maker before blades came to a complete stop. Complains of pa in to tuft of 3rd digit, right hand. CLINICAL DATA: This is the patient's initial encounter. Patient reports that signs and symptoms have been present for 1 day and indicates a pain score of 8/10. MEDICAL/SURGICAL HISTORY: None. None. COMPARISON: No prior [facility] exams available for comparison. FINDINGS: Imaging of the right hand demonstrates fracture through the base of the third digit proximal phalanx and amputation of the distal tuft with adjacent skin disruption. The remainder of the imaged osseous structures are intact. CONCLUSION: Amputation of the distal tuft of the third digit as well as fracture through the base of the distal p halanx. This does not appear to extend to the DIP joint. Electronically signed by: Anita Kirby MD 12/16/2017 9:52 AM EDT
[2017-12-16] MEDS ORDERED: ceFAZolin 2 GM PREMIX 50 ML IV ONE (11:00)
--- NOTE | 2017-12-16 11:06 | HHI.HP ---
[facility] Service Family Medicine Primary Care Physician No Primary Care Physician Admission Diagnosis Distal right 3rd phalanx amputation Diagnoses: International Travel<30 Days: No Contact w/Intl Traveler<30days: No Known Affected Area: No History of Present Illness Patient is a 52-year-old female with past history of depression and schizophrenia who presents today for finger amputation. She reports she was mowing her lawn today, finished mowing and went to clean out the blades. She believe the lumbar is off, however it was not fully off at that time and she could off the end of her third right finger. She states she could see the bone , blood was spurting out, she cover the wound and drove to her daughter's house. No syncope. States she has not been feeling depressed, does not want to hurt herself or others. No other complaints at this time. (Jeff Palomo MD R1) Review of Systems Constitutional: DENIES: Fatigue, Fever, Chills Endocrine: DENIES: Polydipsia, Polyuria Eyes: DENIES: Blurred vision, Diplopia, Eye inflammation, Eye pain, Vision loss , Photosensitivity, Double Vision Ears, nose, mouth, throat: DENIES: Tinnitus, Hearing loss, Throat pain, Hoarseness, Ear Pain Respiratory: DENIES: Cough, Wheezing, Hemoptysis, Sputum production, Shortness of breath Cardiovascular: DENIES: Chest pain, Palpitations Gastrointestinal: DENIES: Abdominal pain, Black stools, Bloody stools, Constipation, Diarrhea, Nausea, Vomiting Genitourinary: DENIES: Hematuria, Dysuria Musculoskeletal: DENIES: Joint pain, Muscle aches, Stiffness Integumentary: DENIES: Abnormal pigmentation, Rash Hematologic/lymphatic: DENIES: Bruising, Lymphadenopathy Immunologic/allergic: DENIES: Eczema, Urticaria Neurologic: DENIES: Abnormal gait, Headache, Paresthesias Psychiatric: DENIES: Anxiety, Confusion, Depression, Suicidal Ideation, Homicidal Ideation (Jeff Palomo MD R1) Past Family Social History Past Medical History Depression Schizophrenia Past Surgical History Cervical spine fusion (4 and 5?) (Jeff Palomo MD R1) Allergies: Coded Allergies: No Known Allergies (Verified Adverse Reaction, Unknown, 12/16/17) Family History Father: BPH, alive Mother: Seizures Social History EtOH: none Tobacco: none Drugs: marijuana (Jeff Palomo MD R1) Physical Exam Vital Signs Vital Signs Date Time Temp Pulse Resp B/P (MAP) Pulse Ox O2 Delivery O2 Flow Rate FiO2 12/16/17 08:35 97.6 98 16 169/84 (112) Physical Exam GENERAL: This is a well-nourished, well-developed patient, in no apparent distress. SKIN: Right third digit dressed with clean dry and intact gauze, dried blood on hand. Otherwise no rashes, ecchymoses or lesions. Cool and dry. HEAD: Atraumatic. Normocephalic. No temporal or scalp tenderness. EYES: Pupils constricted equally b/l (received morphine prior to exam). Extraocular motions intact. No scleral icterus. No injection or drainage. ENT: Nose without bleeding, purulent drainage or septal hematoma. Throat without erythema, tonsillar hypertrophy or exudate. Uvula midline. Airway patent. NECK: Trachea midline. No JVD or lymphadenopathy. Supple, nontender, no meningeal signs. CARDIOVASCULAR: Regular rate and rhythm without murmurs, gallops, or rubs. RESPIRATORY: Clear to auscultation. Breath sounds equal bilaterally. No wheezes , rales, or rhonchi. GASTROINTESTINAL: Abdomen soft, non-tender, nondistended. No hepato-splenomegaly , or palpable masses. No guarding. MUSCULOSKELETAL: Extremities without clubbing, cyanosis, or edema. No joint tenderness, effusion, or edema noted. No calf tenderness. NEUROLOGICAL: Awake and alert. Motor and sensory grossly within normal limits. Five out of 5 muscle strength in all muscle groups. Normal speech. (Jeff Palomo MD R1) Imaging Last Impressions Hand X-Ray 12/16/17 0000 Signed Impressions: CONCLUSION: Amputation of the distal tuft of the third digit as well as fracture through th e base of the distal phalanx. This does not appear to extend to the DIP joint. (Jeff Palomo MD R1) Caprini VTE Risk Assessment Caprini VTE Risk Assessment: No/Low Risk (score <= 1) (Jeff Palomo MD R1) Assessment and Plan Assessment and Plan 52-year-old female with past history of schizophrenia and depression who presents today with right third digit partial amputation. To be taken to OR by hand surgery today. Dr. Allen. Code Status Full code Discussed Condition With ED physician. (Jeff Palomo MD R1) Attending Attestation Pt seen and examined, discussed with resident team. I agree with assessment and management as documented and discussed with me. Latosha Espinal is a 52yo lady with schizophrenia who amputated her finger reaching for a lawnmower blade. She is seen after her surgery in her room. She is without complaints. She denies pain in her finger (due to nerve block). She has no other complaints or concerns. Continue antibiotics for open fracture/amputation. Will need to go home on PO antibiotics most likely. Anticipate discharge tomorrow. Additional diagnosis: amputation of right middle finger: appreciate hand surgery. She is POD#0. (Yvette Ward MD) Problem List: (1) Open fracture of distal phalangeal tuft Status: Acute Plan: Open fracture of distal right third digit. Caused by lawnmower blade. -Vancomycin 1 g every 12 hours -Zosyn 4.5 g every 6 hours -Hand surgery consulted, OR today -Morphine pain management (2) Schizophrenia ICD Codes: F20.9 - Schizophrenia, unspecified Plan: Patient with history of schizophrenia. Reports her medications have recently been changed and she does not remember what they are. Denies the currently reconciled medications. States that her medications are taken in the morning and she is taking all of her normal medications today. If she leaves this afternoon she will be able to continue her medications as normal tomorrow morning at home. -Follow-up correct medication reconciliation (3) Depression ICD Codes: F32.9 - Major depressive disorder, single episode, unspecified Plan: Patient with history of depression. Reports her medications have recently been changed and she does not remember what they are. Denies the currently reconciled medications. States that her medications are taken in the morning and she is taking all of her normal medications today. If she leaves this afternoon she will be able to continue her medications as normal tomorrow morning at home. -Follow-up correct medication reconciliation (4) FEN Plan: Fluids: -N.p.o. until surgery Electrolytes: -Monitor and correct as needed Nutrition: -N.p.o. until surgery PPx -Will not anticoagulate at this time due to impending surgery (Jeff Palomo MD R1) Jeff Palomo MD R1 Dec 16, 2017 11:06 Yvette Ward MD Dec 16, 2017 20:19
[2017-12-16 11:21] LABS: AUTOMATED NEUTROPHIL # 3.8 TH/MM3 (1.8-7.7); BASOPHIL # 0.1 TH/MM3 (0-0.2); BASOPHIL % 1.1 % (0.0-2.0); EOSINOPHIL # 0.1 TH/MM3 (0-0.4); EOSINOPHIL % 2.1 % (0.0-4.0); HEMATOCRIT 40.8 % (35.0-46.0); HEMOGLOBIN 13.1 GM/DL (11.6-15.3); LYMPH % 32.8 % (9.0-44.0); LYMPHOCYTE # 2.1 TH/MM3 (1.0-4.8); MEAN CELL VOLUME 82.3 FL (80.0-100.0); MEAN CORPUSCULAR HEMOGLOBIN 26.5 PG (27.0-34.0); MEAN CORPUSCULAR HGB CONC 32.2 % (32.0-36.0); MEAN PLATELET VOLUME 7.1 FL (7.0-11.0); MONO % 3.5 % (0.0-8.0); MONOCYTE # 0.2 TH/MM3 (0-0.9); NEUT % 60.5 % (16.0-70.0); PLATELET COUNT 387 TH/MM3 (150-450); RED BLOOD COUNT 4.96 MIL/MM3 (4.00-5.30); RED CELL DISTRIBUTION WIDTH 14.4 % (11.6-17.2); WHITE BLOOD COUNT 6.3 TH/MM3 (4.0-11.0)
[2017-12-16 11:42] LABS: CALCIUM 8.8 MG/DL (8.5-10.1); CREATININE 1.07 MG/DL (0.50-1.00)
[2017-12-16 11:43] VITALS: BP 133/79; PULSE 60; RESP 14; O2SAT 99
[2017-12-16] MEDS ORDERED: MORPHINE SULFATE 4 MG/ML INJ IV PUSH ONE (11:45)
[2017-12-16] MEDS ORDERED: LACTATED RINGER'S 1000 ML INJ 1,000 ML IV ONE (12:00)
[2017-12-16] MEDS ORDERED: NALOXONE HCL 0.4 MG/ML AMP IV PUSH PRN (12:00)
[2017-12-16] MEDS ORDERED: ONDANSETRON HCL 4 MG/2 ML VIAL IVP PRN (12:00)
[2017-12-16] MEDS ORDERED: ROCURONIUM INJ 50 MG/5 ML SYRINGE IV PUSH ONE (12:00)
[2017-12-16] MEDS ORDERED: LIDOCAINE HCL 1% PF 5 ML SYRINGE OTHER ONE (12:00)
[2017-12-16] MEDS ORDERED: BISACODYL 10 MG SUPP RECTAL PRN (12:00)
[2017-12-16] MEDS ORDERED: MORPHINE SULFATE 2 MG/ML SYRINGE IV PUSH PRN ×3 (12:00)
[2017-12-16] MEDS ORDERED: PROPOFOL 200 MG/20 ML AMP IV ONE (12:00)
[2017-12-16] MEDS ORDERED: MAGNESIUM HYDROXIDE SUSP 30 ML CUP PO PRN (12:00)
[2017-12-16] MEDS ORDERED: LACTULOSE SYRUP 20 GM/30 ML CUP PO PRN (12:00)
[2017-12-16] MEDS ORDERED: SENNOSIDES 8.6 MG TAB PO PRN (12:00)
[2017-12-16] MEDS ORDERED: BACITRACIN TOP OINT 15 GM TUBE ONE (12:24)
[2017-12-16] MEDS ORDERED: BUPIVACAINE HCL PF 0.75% 10 ML VIAL ONE (12:24)
[2017-12-16] MEDS ORDERED: NEOMYCIN/POLYMYXIN 1 ML G.U. IRRIGANT ONE (12:25)
[2017-12-16] MEDS ORDERED: LIDOCAINE HCL 2% PF 10 ML VIAL ONE (12:27)
[2017-12-16] MEDS ORDERED: DIVA250T PO (12:53)
[2017-12-16] MEDS ORDERED: RISP1TAB2 PO (12:53)
[2017-12-16] MEDS ORDERED: AMIT100T2 PO (12:53)
[2017-12-16] MEDS ORDERED: RISP2TAB2 PO (12:53)
[2017-12-16] MEDS ORDERED: LURA1TAB2 PO (12:53)
[2017-12-16] MEDS ORDERED: *MEPERIDINE 25 MG INJ VIAL PERIprocedural Use ONLY ONE (13:54)
--- NOTE | 2017-12-16 13:56 | PD.ORT.PN ---
Subjective Subjective Remarks Patient reports pain controlled in PACU. Objective Vitals Vital Signs Date Time Temp Pulse Resp B/P (MAP) Pulse Ox O2 Delivery O2 Flow Rate FiO2 12/16/17 12:30 12/16/17 11:43 60 14 133/79 (97) 99 Room Air 12/16/17 08:35 97.6 98 16 169/84 (112) I/O 12/15/17 12/15/17 12/15/17 12/16/17 12/16/17 12/16/17 07:00 15:00 23:00 07:00 15:00 23:00 Intake Total 650 ml Output Total 3 ml Balance 647 ml Intake IV Total 50 ml Other 600 ml Output Estimated Blood Loss 3 ml Result Diagram: 12/16/17 1104 12/16/17 1104 Other Results Laboratory Tests Test 12/16/17 11:04 Prothromb Time International Ratio 1.0 RATIO Prothrombin Time 10.0 SEC (9.8-11.6) Imaging Last 24 hours Impressions Hand X-Ray 12/16/17 0000 Signed Impressions: CONCLUSION: Amputation of the distal tuft of the third digit as well as fracture through th e base of the distal phalanx. This does not appear to extend to the DIP joint. Objective Remarks Dressing in place Assessment & Plan Assessment and Plan 52yF POD0 s/p revision amputation right middle finger after lawnmower injury -D/c per primary team, followup 2 weeks Roma Allen MD Dec 16, 2017 13:56
[2017-12-16] MEDS ORDERED: MIDAZOLAM HCL 2 MG/2 ML VIAL ONE (14:04)
[2017-12-16] MEDS ORDERED: MORPHINE SULFATE 4 MG/ML INJ IV PUSH PRN ×2 (14:30)
[2017-12-16] MEDS ORDERED: DO NOT ADM ANY ANTICOAGULANT DRUGS PRN (14:30)
[2017-12-16] MEDS: VANCOMYCIN INJ 1,000 MG in SODIUM CHLOR 0.9% 250 ML INJ 250 ML IV SCH (14:30)
[2017-12-16] MEDS ORDERED: *morphine SULFATE 4 MG/ML PERIprocedure ONLY ONE (14:34)
--- NOTE | 2017-12-16 15:11 | MB ---
cc: Roma Allen MD DATE: 12/16/2017 REASON FOR CONSULTATION: Amputation right middle finger distal phalanx with exposed bone. HISTORY OF PRESENT ILLNESS: Latosha Espinal is a 52-year-old left-hand dominant female who states that she was cutting the grass this morning when she stuck her hand under the lawnmower and sustained a complete amputation through the distal phalanx of the right middle finger. She denies any prior injuries to the right hand. She states she is currently out of work due to a Work Comp injury injuring her head. The patient does have past medical history significant for schizophrenia. She presented for evaluation. She did eat breakfast. She reports pain over the right middle finger. No other injuries. PAST MEDICAL HISTORY: Schizophrenia. PAST SURGICAL HISTORY: Cervical spine fusion. ALLERGIES: NO KNOWN DRUG ALLERGIES. SOCIAL HISTORY: Reports marijuana use. Denies any tobacco or drug use. PHYSICAL EXAMINATION: GENERAL: The patient is alert and oriented. MUSCULOSKELETAL: Exam of the right middle finger shows amputation of the right middle finger of the distal phalanx through the base of the nail bed. Exposed bone. The patient is able to fire FDP as well as FDS. Sensation intact proximal to the amputation. Capillary refill intact proximal to the amputation. IMAGING STUDIES: X-rays again show complete amputation of the right middle finger through the distal phalanx. ASSESSMENT AND PLAN: A 52-year-old female with an amputation of the right middle finger through the distal phalanx. Treatment options were discussed with the patient. She elected to proceed with surgical intervention to shorten the bone and provide coverage. She elected to proceed. Risks were explained including but not limited to wound complication, infection, stiffness, pain and she elected to proceed. The patient will likely be admitted overnight and then discharged tomorrow for followup in approximately 2 weeks. Roma Allen MD SERomi/DEV , 12:22 PM , 03:10 PM [facility]
[2017-12-16] MEDS: PIPERACIL-TAZO 4.5 GM PREMIX 100 ML IV SCH ×2 (15:53→20:57)
[2017-12-16 16:24] VITALS: BP 122/70; PULSE 70; RESP 18; TEMP 97.8; O2SAT 94
--- NOTE | 2017-12-16 16:39 | MP ---
cc: Roma Allen MD, Sarah E MD DATE OF OPERATION: 12/16/2017 PREOPERATIVE DIAGNOSIS: Partial amputation right middle finger to distal phalanx POSTOPERATIVE DIAGNOSIS: Partial amputation right middle finger to distal phalanx PROCEDURES: 1. Irrigation and debridement, right middle finger. 2. Revision amputation, right middle finger through the distal interphalangeal joint. 3. Interpretation of fluoroscopy by the surgeon right middle finger. SURGEON: Roma Allen MD ANESTHESIA: MAC. TOURNIQUET: None. INDICATIONS FOR PROCEDURE: Latosha Espinal sustained an injury to her right middle finger, including amputation of the right middle finger through the distal phalanx this morning while using her lawnmower. She presented to the emergency room for evaluation. I was called by the ER, as there was exposed bone over the right middle finger. Treatment options discussed with the patient. She elected to proceed with surgical intervention. Risks were explained but not limited to wound complications, infection, stiffness, pain, paresthesias, need for additional surgery and she elected to proceed. DESCRIPTION OF PROCEDURE: The patient was identified in the preoperative holding area and the correct extremity was marked. The patient was taken to the operating room where anesthesia was induced. The right upper extremity was prepped and draped in normal sterile fashion. The prior amputation was irrigated with antibiotic saline. There was a significant amount of distal phalanx exposed in the wound. Initially, this was shortened with a saw, but I was unable to close the skin. There was a fracture of the distal phalanx and again this was shortened through that area, which compromised the function of the FDP. Thus, the decision was made to extend the amputation to the distal interphalangeal joint to allow for good skin coverage. This was confirmed under fluoroscopy. The patient had good capillary refill to the flap. The skin was closed with chromic. The patient was placed in a soft dressing, awoken from anesthesia without complication. Approximately 7 mL of 2% lidocaine without epinephrine was used for local anesthesia to the finger. The patient will be discharged per the primary team and will receive IV antibiotics. Roma Allen MD [facility]/ , 01:47 PM , 04:38 PM [facility]
[2017-12-16] MEDS: MORPHINE SULFATE 4 MG/ML INJ IV PUSH PRN (17:22)
[2017-12-16 20:12] VITALS: BP 128/76; PULSE 70; RESP 18; TEMP 98.1; O2SAT 100
[2017-12-16] MEDS ORDERED: ONDANSETRON ODT 4 MG TAB PO PRN (20:45)
[2017-12-16] MEDS: DOCUSATE SODIUM 50 MG/SENNA 8.6 MG TAB PO SCH (20:56)
[2017-12-16] MEDS: DIVALPROEX SODIUM DELAYED RELEASE 250 MG TAB PO SCH (20:56)
[2017-12-16] MEDS ORDERED: risperiDONE 1 MG TAB PO SCH (21:00)
[2017-12-16] MEDS ORDERED: AMITRIPTYLINE HCL 100 MG TAB PO SCH (21:00)
[2017-12-16 23:44] VITALS: BP 159/78; PULSE 74; RESP 18; TEMP 98.2; O2SAT 99
[2017-12-17] MEDS: VANCOMYCIN INJ 1,000 MG in SODIUM CHLOR 0.9% 250 ML INJ 250 ML IV SCH (02:16)
[2017-12-17] MEDS: PIPERACIL-TAZO 4.5 GM PREMIX 100 ML IV SCH ×2 (02:16→08:33)
[2017-12-17 03:46] VITALS: BP 113/63; PULSE 66; RESP 16; TEMP 98.6; O2SAT 97
[2017-12-17] MEDS: MORPHINE SULFATE 4 MG/ML INJ IV PUSH PRN ×2 (03:50→08:32)
[2017-12-17 08:00] VITALS: BP 113/56; PULSE 68; RESP 16; TEMP 98.3; O2SAT 95
--- NOTE | 2017-12-17 08:12 | HHI.DCPOC ---
Discharge Care Plan Diagnosis: (1) Open fracture of distal phalangeal tuft Goals to Promote Your Health * To prevent worsening of your condition and complications * To maintain your health at the optimal level Directions to Meet Your Goals Take your medications as prescribed Follow your dietary instruction Follow activity as directed Keep your appointments as scheduled Take your immunizations and boosters as scheduled If your symptoms worsen call your PCP, if no PCP go to Urgent Care Center or Emergency Room Smoking is Dangerous to Your Health. Avoid second hand smoke Call the 24-hour hour crisis hotline for domestic abuse at Maribel Mayers MD R3 Dec 17, 2017 08:12
[2017-12-17] MEDS ORDERED: NORC5TAB PO (08:13)
[2017-12-17] MEDS ORDERED: AUGM875T3 PO (08:26)
[2017-12-17] MEDS ORDERED: CIPR750T2 PO (08:26)
[2017-12-17] MEDS: DIVALPROEX SODIUM DELAYED RELEASE 250 MG TAB PO SCH (08:32)
[2017-12-17] MEDS: DOCUSATE SODIUM 50 MG/SENNA 8.6 MG TAB PO SCH (08:33)
--- NOTE | 2017-12-17 08:53 | HHI.FPPN ---
Subjective Remarks No acute issues overnight. Vitals are stable, patient remains afebrile. She describes a pulsating pain in her injured finger. She denies any chest pain, shortness of breath, fever, chills, nausea or vomiting. She feels comfortable going home today. (Maribel Mayers MD R3) Objective Vitals Vital Signs Date Time Temp Pulse Resp B/P (MAP) Pulse Ox O2 Delivery O2 Flow Rate FiO2 12/17/17 03:55 16 12/17/17 03:46 98.6 66 16 113/63 (80) 97 12/16/17 23:44 98.2 74 18 159/78 (105) 99 12/16/17 20:12 98.1 70 18 128/76 (93) 100 12/16/17 16:24 97.8 70 18 122/70 (87) 94 12/16/17 14:40 72 16 143/72 (95) 100 Room Air 12/16/17 14:30 63 16 146/81 (102) 100 Room Air 12/16/17 14:15 63 16 145/81 (102) 100 Room Air 12/16/17 13:55 97.7 80 16 151/72 (98) 98 Nasal Cannula 2 12/16/17 12:30 12/16/17 11:43 60 14 133/79 (97) 99 Room Air I/O 12/16/17 12/16/17 12/16/17 12/17/17 12/17/17 12/17/17 06:59 14:59 22:59 06:59 14:59 22:59 Intake Total 650 ml 710 ml 260 ml Output Total 3 ml Balance 647 ml 710 ml 260 ml Intake Oral 360 ml 260 ml IV Total 50 ml 350 ml Other 600 ml Output Estimated Blood Loss 3 ml # Voids 3 3 (Maribel Mayers MD R3) Result Diagram: 12/16/17 1104 12/16/17 1104 Imaging Last Impressions Hand X-Ray 12/16/17 0000 Signed Impressions: CONCLUSION: Amputation of the distal tuft of the third digit as well as fracture through th e base of the distal phalanx. This does not appear to extend to the DIP joint. Objective Remarks GENERAL: female in no acute distress. SKIN: Warm and dry. HEAD: Normocephalic. EYES: No scleral icterus. No injection or drainage. NECK: Supple, trachea midline. CARDIOVASCULAR: Regular rate and rhythm without murmurs, gallops, or rubs. RESPIRATORY: Breath sounds equal bilaterally. No accessory muscle use. GASTROINTESTINAL: Abdomen soft, non-tender, nondistended. MUSCULOSKELETAL: No cyanosis, or edema. Right third digit dressed with clean dry and intact gauze. BACK: Nontender without obvious deformity. (Maribel Mayers MD R3) A/P Assessment and Plan 52-year-old female with past history of schizophrenia and depression who presented with right third digit partial amputation. She is now s/p irrigation and debridement, right middle finger and revision amputation, right middle finger through the distal interphalangeal joint by Dr. Allen. Discharge Planning Discharge home today. (Maribel Mayers MD R3) Attending Attestation Patient seen, examined, and discussed with resident team. I agree with assessment and management as documented and discussed with me. PT reports throbbing in her finger. Otherwise, no complaints. Discharge home today. 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 Caused by lawnmower blade. s/p irrigation and debridement, right middle finger and revision amputation, right middle finger through the distal interphalangeal joint by Dr. Allen on 12/16. -Vancomycin 1 g every 12 hours -Zosyn 4.5 g every 6 hours - Transition to 48 hours of PO Augmentin and Cipro on discharge -Morphine pain management (2) Schizophrenia ICD Codes: F20.9 - Schizophrenia, unspecified Status: Chronic Plan: Stable. Continue home medications. (3) Depression ICD Codes: F32.9 - Major depressive disorder, single episode, unspecified Status: Chronic Plan: Stable. Continue home medications. (4) FEN Status: Acute Plan: Fluids: -None Electrolytes: -Monitor and correct as needed Nutrition: -Regular Diet (Maribel Mayers MD R3) Problem Qualifiers (1) Schizophrenia: Qualified Codes: F20.9 - Schizophrenia, unspecified (2) Depression: Qualified Codes: F32.9 - Major depressive disorder, single episode, unspecified Maribel Mayers MD R3 Dec 17, 2017 08:53 Yvette Ward MD Dec 17, 2017 14:41
[2017-12-17] MEDS ORDERED: LURASIDONE 40 MG TAB PO SCH (09:00)
[2017-12-17] MEDS ORDERED: risperiDONE 1 MG TAB PO SCH (09:00)
[2017-12-17 12:00] VITALS: BP 127/62; PULSE 79; RESP 17; TEMP 98.8; O2SAT 95
[2017-12-17] MEDS ORDERED: ACETAMINOPHEN/HYDROcodone 325 MG/5 MG TAB PO ONE (12:00)
--- NOTE | 2017-12-17 15:52 | EKG ---
Date Performed: 12/16/2017 Time Performed: 10:53:07 PTAGE: 52 years EKG: SINUS BRADYCARDIA Slight ST elevations compatible with early repolarization PREVIOUS TRACING 10/17/16 Since previous tracing, slight changes of early repolarization is new and heart rate is slower. DOCTOR: Meet Palomino Interpretating Date/Time 12/17/2017 15:52:19
== END 2017-12-17 14:42 | disposition home or self-care (01) ==
LOC: NEPC 08:31 → UNDOADMOB 11:06 → NEDH 11:06 → NEDA 11:06 → INTOOBSV 11:06 → NEPFCDU 12:06 → NEDH 12:06 → NEPFCDU 12:06 → N06B 12:26 → NEPFCDU 12:26 → N06B 12:26 → NEPFCDU 12:42 → UNDODISOB 12-17 14:42
PROVIDERS: ADMIT Family Medicine; ATTEND Family Medicine
DX: S62.632A Displaced fracture of distal phalanx of right middle finger, initial encounter for closed fracture (principal); S68.122A Partial traumatic metacarpophalangeal amputation of right middle finger, initial encounter; R00.1 Bradycardia, unspecified; F20.9 Schizophrenia, unspecified; F31.9 Bipolar disorder, unspecified; J45.909 Unspecified asthma, uncomplicated; F12.90 Cannabis use, unspecified, uncomplicated; Z98.1 Arthrodesis status; W28.XXXA Contact with powered lawn mower, initial encounter; Z23 Encounter for immunization
CPT/HCPCS: 01830; 26952; 64450; 73120; 76000; 80048; 85025; 85610; 85730; 86850; 86900; 86901; 90471; 90714; 93005; 96365; 96366; 96367; 96368; 96372; 96375; 96376; 99285; G0378; J0690; J2175; J2250; J2270; J2543; J3010; J3370; J7050; J7120

== ENCOUNTER 2018-05-28 12:44 | Inpatient (IN) ==
--- NOTE | 2018-05-28 16:19 | ED ---
HPI General Chief Complaint: Psychiatric Symptoms Stated Complaint: Psych Eval Time Seen by Provider: 05/28/18 16:04 Source: patient Mode of arrival: ambulatory Limitations: no limitations History of Present Illness HPI Narrative: 33-year-old female with PMH of paranoid schizophrenia, traumatic brain injury presents to the ED for voluntary psychiatric evaluation. The patient reports strange feelings increasing anxiety, worsening auditory hallucinations, insomnia. She states that she hears voices in her head whom she calls " the planners. "She states that normally they are asleep but has been "pacing" recently. She states that "the planners" tell her to harm herself. She states that she has not taken her medications for an unknown period of time. She estimates only sleeping 5 minutes at a time throughout the night. She states that she attempted to go to [facility] but was unable to obtain a bed. She denies any somatic complaints. She denies using alcohol or illicit drugs. Related Data Home Medications Medication Instructions Recorded Confirmed Unable to Obtain Home Meds 05/28/18 05/28/18 Allergies Allergy/AdvReac Type Severity Reaction Status Date / Time No Known Allergies Allergy Verified 05/28/18 12:52 Review of Systems ROS: all other systems reviewed are negative [facility] Medical History Medical History Schizo affective schizophrenia (Acute) TBI (traumatic brain injury) (Acute) Social History Social History Substance History: No History of Abuse Second Hand Smoke Exposure: No Smoking Status: Never smoker How Often Do You Have a Drink Containing Alcohol: Never Recent Travel in [facility] within the Last 8 Weeks: No Recent Out of Country Travel within the Last 8 Weeks: No Immunization History Tetanus Immunization: Unsure Exam Narrative Exam Narrative: GENERAL: Well-nourished, well-developed -[place] female in no acute distress. SKIN: Focused skin assessment warm/dry. HEAD: Atraumatic. Normocephalic. EYES: Pupils equal and round. No scleral icterus. No injection or drainage. ENT: No nasal bleeding or discharge. Mucous membranes pink and moist. NECK: Trachea midline. No JVD. CARDIOVASCULAR: Regular rate and rhythm. No murmur appreciated. RESPIRATORY: No accessory muscle use. Clear to auscultation. Breath sounds equal bilaterally. GASTROINTESTINAL: Abdomen soft, non-tender, nondistended. Hepatic and splenic margins not palpable. MUSCULOSKELETAL: No obvious deformities. No clubbing. No cyanosis. No edema. NEUROLOGICAL: Awake and alert. No obvious cranial nerve deficits. Motor grossly within normal limits. Normal speech. PSYCHIATRIC: Tearful, confused. Seems to be responding to internal stimuli. Course Initial Documented Vital Signs Temperature 98.7 F 05/28/18 12:49 Pulse Rate 75 05/28/18 12:49 Respiratory Rate 18 05/28/18 12:49 Blood Pressure 131/71 05/28/18 12:49 Pulse Oximetry 98 05/28/18 12:49 Last Documented Vital Signs Temperature 98.7 F 05/28/18 12:49 Pulse Rate 75 05/28/18 12:49 Respiratory Rate 18 05/28/18 12:49 Blood Pressure 131/71 05/28/18 12:49 Pulse Oximetry 98 05/28/18 12:49 Medical Decision Making MDM Narrative Medical decision making narrative: 33-year-old female with PMH of paranoid schizophrenia, traumatic brain injury presents to the ED for voluntary psychiatric evaluation. The patient reports strange feelings increasing anxiety , worsening auditory hallucinations, insomnia. She states that she hears voices in her head whom she calls " the planners." She states that normally they are asleep but has been "pacing" recently. She states that "the planners" tell her to harm herself. She states that she has not taken her medications for an unknown period of time. She estimates only sleeping 5 minutes at a time throughout the night. She states that she attempted to go to [facility] but was unable to obtain a bed. She denies any somatic complaints. She denies using alcohol or illicit drugs. Vitals reviewed. On exam patient is very anxious. She seems to be responding to internal stimuli. She was administered Zyprexa and Ativan. Basic lab work without any concerning abnormalities. Patient's medically clear for psychiatric evaluation. Medical Screen Exam Complete: Yes Emergency Medical Condition: Yes Differential Diagnosis Differential Diagnosis: anxiety versus bipolar versus depression versus mood disorder versus psychosis versus PTSD versus schizophrenia versus schizoaffective disorder versus substance-induced mood disorder versus other Lab Data Result diagrams: 05/28/18 16:37 05/28/18 16:37 Lab Results 05/28/18 05/28/18 Range/Units 16:37 16:37 WBC 7.1 (4.0-11.0) th/mm3 RBC 4.31 (4.00-5.30) mil/mm3 Hgb 12.0 (11.6-15.3) gm/dL Hct 35.8 (35.0-46.0) % MCV 83.0 (80.0-100.0) fL MCH 27.9 (27.0-34.0) pg MCHC 33.6 (32.0-36.0) % RDW 14.0 (11.6-17.2) % Plt Count 270 (150-450) th/mm3 MPV 7.3 (7.0-11.0) fL Neut % (Auto) 38.6 (16.0-70.0) % Lymph % (Auto) 52.3 H (9.0-44.0) % Winn % (Auto) 3.8 (0.0-8.0) % Eos % (Auto) 4.5 H (0.0-4.0) % Baso % (Auto) 0.8 (0.0-2.0) % Neut # (Auto) 2.7 (1.8-7.7) th/mm3 Lymph # (Auto) 3.7 (1.0-4.8) th/mm3 Winn # (Auto) 0.3 (0.0-0.9) th/mm3 Eos # (Auto) 0.3 (0.0-0.4) th/mm3 Baso # (Auto) 0.1 (0.0-0.2) th/mm3 WBC Differential . Differential Comment Auto diff final Sodium 142 (136-145) meq/L Potassium 3.8 (3.5-5.1) meq/L Chloride 107 (98-107) meq/L Carbon Dioxide 26.8 (21.0-32.0) meq/L Anion Gap 8 (5-15) meq/L BUN 10 (7-18) mg/dL Creatinine 0.76 (0.50-1.00) mg/dL Estimated GFR Greater than 89 (>89) mL/min Random Glucose 88 (74-106) mg/dL Calcium 8.7 (8.5-10.1) mg/dL Magnesium 2.0 (1.5-2.5) mg/dL Total Bilirubin 0.4 (0.2-1.0) mg/dL AST 35 (15-37) U/L ALT 43 (10-53) U/L Alkaline Phosphatase 65 (45-117) U/L Total Protein 7.7 (6.4-8.2) g/dL Albumin 3.8 (3.4-5.0) g/dL TSH 3.590 (0.358-3.740) uIU/mL Serum Alcohol Less than 3 (0-5) mg/dL Discharge Plan Discharge Disposition Patient Disposition: 30 Still Patient Physicians Team ED Provider: Thony Ontiveros ED Midlevel Provider: Camila Magana Primary Care Provider: [facility] [place] Rxs /Orders / Referrals /Forms Prescriptions: No Action Unable to Obtain Home Meds RF: 0 Status ED Status: Medically Cleared
[2018-05-28] MEDS ORDERED: OLANZapine 10 MG Tablet PO ONE (16:20)
[2018-05-28 17:01] LABS: Baso # (Auto) 0.1 th/mm3 (0.0-0.2); Baso % (Auto) 0.8 % (0.0-2.0); Eos # (Auto) 0.3 th/mm3 (0.0-0.4); Eos % (Auto) 4.5 % (0.0-4.0); Hematocrit 35.8 % (35.0-46.0); Lymph # (Auto) 3.7 th/mm3 (1.0-4.8); Lymph % (Auto) 52.3 % (9.0-44.0); Mean Corpuscular HGB Conc 33.6 % (32.0-36.0); Mean Corpuscular Hemoglobin 27.9 pg (27.0-34.0); Mean Platelet Volume 7.3 fL (7.0-11.0); Mono # (Auto) 0.3 th/mm3 (0.0-0.9); Mono % (Auto) 3.8 % (0.0-8.0); Neut # (Auto) 2.7 th/mm3 (1.8-7.7); Neut % (Auto) 38.6 % (16.0-70.0); Platelet Count 270 th/mm3 (150-450); Red Blood Count 4.31 mil/mm3 (4.00-5.30); White Blood Count 7.1 th/mm3 (4.0-11.0)
[2018-05-28 17:05] LABS: Alanine Aminotransferase 43 U/L (10-53); Albumin 3.8 g/dL (3.4-5.0); Anion Gap 8 meq/L (5-15); Aspartate Aminotransferase 35 U/L (15-37); Blood Urea Nitrogen 10 mg/dL (7-18); Calcium 8.7 mg/dL (8.5-10.1); Carbon Dioxide 26.8 meq/L (21.0-32.0); Chloride 107 meq/L (98-107); Glomerular Filtration Rate Greater Than 89 mL/min (>89); Glucose,Random 88 mg/dL (74-106); Potassium 3.8 meq/L (3.5-5.1); Sodium 142 meq/L (136-145)
[2018-05-28 17:15] LABS: Alkaline Phosphatase 65 U/L (45-117); Total Protein 7.7 g/dL (6.4-8.2)
[2018-05-28 20:39] LABS: Amphetamine Screen,Urine Neg (Neg); Barbiturate Screen,Urine Neg (Neg); Cannabinoid Screen,Urine Pos (Neg); Cocaine Screen,Urine Neg (Neg)
[2018-05-28 20:43] LABS: Opiate Screen,Urine Neg (Neg)
[2018-05-29] MEDS ORDERED: LORazepam 1 MG Tablet PO PRN (06:15)
[2018-05-29] MEDS ORDERED: Aluminum/Magnesium/Simethacone Susp 30 ML UDC PO PRN (06:15)
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
[2018-05-29] MEDS: Divalproex 500 MG ER Tablet PO SCH (21:00)
[2018-05-29] MEDS: OLANZapine 10 MG Tablet PO SCH (21:01)
[2018-05-30] MEDS: Acetaminophen 325 MG Tablet PO PRN (08:11)
--- NOTE | 2018-05-30 09:54 | P.TTN ---
- Patient Problems Problems: 1. Discharge planning 2. Medication compliance 3. Knowledge deficit 4. Lack of coping skills - Progress Toward Goals Provider Present: Dr. Hector Blanchard (Dr. Blanchard is titrating medications, patient remains for further stabilization.) Psychiatric Counselors Present: Beau Pierre Jr., [facility] (Patient reports he will be living with his brother Bret upon discharge. Patient will go [facility] tomorrow May 31, 2018.) Group Spec/RT/OT/MILNER Present: ANNIA See (Patient attends select groups and is redirectable.) - Documentation Teaching Recipient: Patient
--- NOTE | 2018-05-30 12:47 | P.PNPSY ---
Subjective Remarks: Patient is seen in her room with nurse Sofie, chart reviewed, patient compliant medications. Patient calm cooperative pleasant with me acknowledges persistent auditory hallucinations was somewhat command nature today they are making her somewhat angry. She does denies suicidality herself. For now continue treatment Review of Systems All other systems reviewed negative except as stated in HPI Mental Status Examination Appearance: Appropriate Consciousness: Alert Orientation: Person Motor Activity: Normal gait Speech: Hesitant (Improving) Language: Adequate Fund of Knowledge: Adequate (Fair) Attention and Concentration: Adequate (Fair) Memory: Impaired Mood: Sad, Anxious (Calm her) Affect: Other (Decreased range and intensity) Thought Process & Associations: Disorganized (Somewhat more focused) Thought Content: Hallucinations Delusion Type: Paranoid Suicidal Ideation: No Suicidal Plan: No Suicidal Intention: No Homicidal Ideation: No Homicidal Plan: No Homicidal Intention: No Insight: Poor Judgment: Poor Assessment and Plan - Assessment (1) TBI (traumatic brain injury) Code(s): S06.9X9A - Unspecified intracranial injury with loss of consciousness of unspecified duration, initial encounter Status: Acute (2) 

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
[2018-05-30] MEDS: Divalproex 500 MG ER Tablet PO SCH (21:20)
[2018-05-30] MEDS: OLANZapine 10 MG Tablet PO SCH (21:20)
--- NOTE | 2018-05-31 10:52 | P.PNPSY ---
Subjective Remarks: Patient seen and veras with nurse Sofie, chart reviewed, patient compliant medications. Patient states the auditory hallucinations that she calls the "planners" is softening somewhat there are some intervals where it is quite faint. She denies suicidality though she states the "planners" still mention it. For now continue treatment patient scheduled for Depakote blood level tomorrow morning Dr. Truong's neuropsychological evaluation reviewed and appreciated and agreed with Review of Systems All other systems reviewed negative except as stated in HPI Mental Status Examination Appearance: Appropriate Consciousness: Alert Orientation: Person Motor Activity: Normal gait Speech: Unremarkable Language: Adequate Fund of Knowledge: Adequate (Fair) Attention and Concentration: Adequate (Fair) Memory: Impaired Mood: Sad Affect: Other (Good range and intensity) Thought Process & Associations: Disorganized (Somewhat more focused) Thought Content: Hallucinations Hallucination Type: Auditory (Improving) Delusion Type: Paranoid (Improving) Suicidal Ideation: No Suicidal Plan: No Suicidal Intention: No Homicidal Ideation: No Homicidal Plan: No Homicidal Intention: No Insight: Fair Judgment: Adequate (Fair) Assessment and Plan - Assessment (1) TBI (traumatic brain injury) Code(s): S06.9X9A - Unspecified intracranial injury with loss of consciousness of unspecified duration, initial encounter Status: Acute (2) 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
[2018-05-31] MEDS: Divalproex 500 MG ER Tablet PO SCH (20:29)
[2018-05-31] MEDS: OLANZapine 10 MG Tablet PO SCH (20:29)
[2018-05-31] MEDS: Acetaminophen 325 MG Tablet PO PRN (20:31)
[2018-06-01 05:50] VITALS: BP 117/59; PULSE 60; RESP 18; TEMP 98.4; O2SAT 100
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
== END 2018-06-01 16:00 | disposition home or self-care (01) | DRG 884 ==
LOC: NEPD 12:44 → NEDA 23:23 → H260 23:50
PROVIDERS: ADMIT Psychiatry & Neurology Psychiatry; ATTEND Psychiatry & Neurology Psychiatry
CPT/HCPCS: 80053; 80164; 80307; 83735; 84443; 84703; 85025; 90772; 90782; 90791; 96372; 99285; J2060; Q0163